=== PATIENT | female | born 2000 | race Caucasian/White ===

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

== ENCOUNTER 2022-04-26 21:39 | Emergency (ER) | payer OTHER, SELFPAY ==
[2022-04-26 22:17] VITALS: BP 139/80; PULSE 100; RESP 16; TEMP 36.9; O2SAT 100
--- NOTE | 2022-04-26 23:56 | PC.NURSE ---
2350 - Attempted to call pt for 2 hr vitals. Pt was not found in waiting room and another pt's family member stated that she walked out.
== END 2022-04-26 23:50 | disposition left against medical advice (07) ==
PROVIDERS: PCP Physician Assistant
DX: R14.0 Abdominal distension (gaseous) (principal)
CPT/HCPCS: 99199

== ENCOUNTER 2022-11-20 09:47 | Emergency (ER) | payer OTHER, SELFPAY ==
--- NOTE | ~2022-11-20 | CT_ITS ---
EXAMINATION: CT abdomen pelvis w con DATE: 11/20/2022 11:54 INDICATION: Generalized abdominal pain, nausea and vomiting TECHNIQUE: Computed tomography (CT) of the abdomen and pelvis was performed with 100 CC Omnipaque 350 intravenous contrast. Automated exposure control and iterative reconstruction technique were employe d. Exam dose: 240.03 mGy-cm total exam DLP. COMPARISON: 05/02/2021 CT abdomen pelvis FINDINGS: The lung bases are clear. Normal heart size. No pericardial or pleural effusion. The liver, gallbladder, bile ducts, spleen, pancreas, pancreatic duct, and adrenal glands and kidneys appear normal. Normal caliber of the abdominal aorta. No intraperitoneal or retroperitoneal or pelvic mass lesion or adenopathy or ascites is noted. Retroverted uterus. Adnexal areas and urinary bladder appear unremarkable. Normal appendix. No bowel obstruction, bowel wall thickening, pneumatosis or intraperitoneal free air is detected. Small fat-containing umbilical hernia. Included skeletal structures are unremarkable. IMPRESSION: Normal appendix; no bowel obstruction No significant abdominal abnormality Reviewed, dictated and finalized at [facility] Reviewed, dictated and finalized at [facility].
[2022-11-20 09:54] VITALS: BP 127/87; PULSE 93; RESP 18; TEMP 36.4; O2SAT 92
[2022-11-20 10:02] VITALS: BP 102/89; PULSE 89; RESP 18; TEMP 36.4; O2SAT 99
[2022-11-20 10:19] LABS: Basophils Absolute Auto 0.1 K/mm3 (0.0-0.1); Basophils Percent Auto 0.7 % (0.2-1.2); Eosinophils Percent Auto 0.3 % (0-4.4); Hematocrit 40.7 % (37.0-47.0); Hemoglobin 13.8 g/dL (12.0-15.0); Immature Granulocyte Absolute 0.06 K/mm3 (0.00-0.031); Immature Granulocyte Percent A 0.4 % (0-0.5); Lymphocytes Absolute Auto 1.39 K/mm3 (0.9-3.2); Lymphocytes Percent Auto 10.3 % (18.3-44.2); Mean Corpuscular HGB Conc 33.9 g/dl (32-36); Mean Corpuscular Hemoglobin 29.7 pg (26-34); Mean Corpuscular Volume 87.5 fl (80-100); Mean Platelet Volume 10.2 fl (7.4-10.4); Monocytes Absolute Auto 0.5 K/mm3 (0.1-0.6); Monocytes Percent Auto 3.6 % (2.6-8.5); Neutrophils Absolute Auto 11.4 K/mm3 (1.3-6.7); Neutrophils Percent Auto 84.7 % (45.5-73.1); Platelet Count Result 275 k/mm3 (150-375); Red Blood Count 4.65 M/mm3 (4.2-5.4); Red Cell Distribution Width 11.5 % (11.5-14.5); White Blood Count 13.5 K/mm3 (4.5-10.0)
[2022-11-20 10:27] LABS: Appearance Urine Cloudy (Clear); Bilirubin Urine 1+ (Negative); Blood Urine 2+ (Negative); Color Urine Yellow (Yellow); Glucose Urine UA 2+ mg/dL (Negative); Ketones Urine 4+ mg/dL (Negative); Leukocyte Esterase Ur Negative LEU/UL (Negative); Nitrate Urine Negative (Negative); Protein Urine 2+ mg/dL (Negative); Specific Grav Ur >= 1.030 (1.001-1.035); Urobilinogen Urine 0.2 mg/dL (<2.0); pH Urine 5.5 (5.0-9.0)
[2022-11-20 10:29] LABS: Alanine Aminotransferase 20 U/L (6-35); Albumin Level 4.6 g/dL (3.7-5.6); Alkaline Phosphatase 68 U/L (45-116); Anion Gap 14 mmol/L (8-16); Aspartate Amino Transferase 24 U/L (14-36); Bilirubin,Total 0.9 mg/dL (0.2-1.3); Blood Urea Nitrogen 13 mg/dL (8-21); Calcium 9.5 mg/dL (8.9-10.7); Carbon Dioxide 21 mmol/L (22-30); Chloride 105 mmol/L (98-107); Estimated CRCL calculation 92 ml/min; Estimated Glomerular Filt Rate > 60; Glucose 258 mg/dL (65-110); Lipase 28 U/L (23-300); Potassium 3.9 mmol/L (3.4-5.0); Sodium 140 mmol/L (134-143)
[2022-11-20 10:29] LABS: Bacteria Urine 1+ /hpf; Non Pathogenic Casts 0-2; RBC Urine 0-2 /hpf (0-2); Squamous Epithelial Cell Urine Moderate /hpf (Few); WBC Urine 21-50 /hpf
[2022-11-20 10:33] LABS: Add Urine Microscopic? YES
--- NOTE | 2022-11-20 10:34 | PC.NURSE ---
Lab called regarding add on tests.
[2022-11-20] MEDS: SODIUM CHLORIDE 0.9% IV 1,000 ML 999 ML IV CONT ×2 (10:38→10:39)
[2022-11-20 10:45] LABS: Ethanol < 10 mg/dL (<10)
[2022-11-20 10:56] LABS: Amphetamine Screen Urine Negative (Negative); Barbiturate Screen Urine Negative (Negative); Benzodiazepines Screen Urine Negative (Negative); Cannabinoid Screen Urine Positive (Negative); Cocaine Screen Urine Negative (Negative); Methadone Screen Urine Negative (Negative); Opiate Screen Urine Negative (Negative); Phencyclidine Screen Urine Negative (Negative)
[2022-11-20] MEDS: METOCLOPRAMIDE HCL INJ 10 MG/2 ML VIAL IV PUSH (12:02)
[2022-11-20] MEDS: diphenhydrAMINE HCl INJ 50 MG/ML VIAL 25 MG IV PUSH (12:04)
[2022-11-20] MEDS: FAMOTIDINE 20 MG/2 ML VIAL IV PUSH (12:05)
[2022-11-20] MEDS: MORPHINE SULFATE (*CRX) 4 MG/ML INJ 2 MG IV PUSH (12:08)
[2022-11-20] MEDS: DICYCLOMINE HCL INJ 20 MG/2 ML VIAL IM (12:09)
--- NOTE | 2022-11-20 13:22 | ED.GENADULT ---
HPI - General Adult General Chief complaint: Abdominal Pain Stated complaint: ABD Pain Time Seen by Provider: 11/20/22 11:18 History of Present Illness HPI narrative: Eleni Guevara is a 21 y/o female with PMHx of type I DM who presents today with complaints of nausea/vomiting/diarrhea that started last night, she states that she drank an unknown alcohol last night and then immediately felt ill. She reports all over non specific abdominal pain. She has not been able to keep anything down today. Related Data Home Medications Medication Instructions Recorded Confirmed insulin glargine 100 unit/mL (3 28 unit subcut DAILY 02/12/21 06/24/21 mL) subcutaneous pen (Lantus Solostar U-100 Insulin) insulin lispro 100 unit/mL 100 unit subcut DIRECTED 02/12/21 06/24/21 subcutaneous pen duloxetine 30 mg capsule,delayed 30 mg DAILY 05/06/21 06/24/21 release omeprazole 40 mg capsule,delayed 40 mg DAILY 05/06/21 06/24/21 release Allergies Allergy/AdvReac Type Severity Reaction Status Date / Time No Known Allergies Allergy Verified 09/23/21 10:00 Review of Systems Review of Systems: CONSTITUTIONAL: Denies fever, chills, or sweats. EYES: Denies visual changes, redness, or discharge. ENT: Denies rhinorrhea, congestion, sore throat, or otalgia. CARDIOVASCULAR: Denies chest pain, palpitations, or edema. RESPIRATORY: Denies cough or dyspnea. GASTROINTESTINAL: Reports all over generalized abdominal pain, nausea and vomiting, and reports diarrhea started today. GENITOURINARY: Denies dysuria or hematuria. SKIN: Denies rash or itching. MUSCULOSKELETAL: Denies back pain, joint pain, or myalgia. NEUROLOGIC: Denies headache, numbness, dizziness, or weakness. PSYCHIATRIC: Denies anxiety or depression. [facility] Past Medical History Medical History Asthma Constipation DKA, type 1 GERD (gastroesophageal reflux disease) Nausea and vomiting in adult Type I diabetes mellitus Surgical History Surgical History No history of previous surgery Social History Social History Smoking status: Never smoker Alcohol intake: never Substance use: never Living arrangements: with family Occupation/Education: student Gender identity (if verbalized by the patient): Female Exam Narrative: GENERAL: Well-appearing, well-nourished, and in no acute distress. HEAD: Normocephalic, atraumatic. EYES: PERRLA and EOMI. ENT: Nares clear, no rhinorrhea or epistaxis. Mucous membranes moist. Oropharynx without tonsillar hypertrophy exudate or other lesions. NECK: Supple. No adenopathy or masses. No carotid bruits or JVD CHEST: Clear to auscultation. No respiratory distress. No wheezes rales or rhonchi HEART: Regular rate and rhythm. No murmur heard. Normal peripheral pulses. ABDOMEN: Soft, nondistended, normal active bowel sounds. Pain is generalized she complains of pain all over abdomen but it is not reproducible with palpation EXTREMITIES: Normal range of motion. No edema. SKIN: Warm, dry, no rash. NEURO: No focal deficits. Alert and oriented x3. PSYCH: Normal mood and affect. Course Vital Signs Vital signs: Vital Signs Temperature 36.4 C L 11/20/22 09:54 Pulse Rate 93 11/20/22 09:54 Respiratory Rate 18 11/20/22 09:54 Blood Pressure 127/87 11/20/22 09:54 Pulse Oximetry 92 11/20/22 09:54 Oxygen Delivery Room Air 11/20/22 09:54 Temperature 36.4 C L 11/20/22 10:02 Pulse Rate 75 11/20/22 14:54 Respiratory Rate 17 11/20/22 14:54 Blood Pressure 100/61 11/20/22 14:54 Pulse Oximetry 100 11/20/22 14:54 Oxygen Delivery Room Air 11/20/22 09:54 Medical Decision Making MDM Narrative Medical decision making narrative: On exam pt is upset/ tearful complaining of nausea/vomiting and now diarrhea that started after drinki
[2022-11-20 13:23] LABS: Glucose Point of Care 207 mg/dl (65-105)
[2022-11-20 14:54] VITALS: BP 100/61; PULSE 75; RESP 17; O2SAT 100
== END 2022-11-20 15:22 | disposition home or self-care (01) ==
PROVIDERS: Emergency Medicine; Emergency Provider Nurse Practitioner Family; PCP Physician Assistant
DX: K52.9 Noninfective gastroenteritis and colitis, unspecified (principal); N30.01 Acute cystitis with hematuria; E10.9 Type 1 diabetes mellitus without complications; J45.909 Unspecified asthma, uncomplicated; K21.9 Gastro-esophageal reflux disease without esophagitis; Z79.4 Long term (current) use of insulin
CPT/HCPCS: 36415; 74177; 80053; 80307; 81001; 81025; 82948; 83690; 85025; 87086; 87088; 96361; 96372; 96374; 96375; 99284; J0500; J1200; J2270; J2765; J7030; Q9967

== ENCOUNTER 2023-12-11 17:04 | Emergency (ER) | payer OTHER, SELFPAY ==
[2023-12-11 17:32] VITALS: BP 113/71; PULSE 103; RESP 16; TEMP 36.9; O2SAT 100
== END 2023-12-11 18:20 | disposition left against medical advice (07) ==
LOC: EXPBETH 17:08
PROVIDERS: Emergency Provider Registered Nurse
DX: Z53.21 Procedure and treatment not carried out due to patient leaving prior to being seen by health care provider (principal)
CPT/HCPCS: 99199

== ENCOUNTER 2024-10-18 18:20 | Emergency (ER) | payer OTHER, SELFPAY ==
--- OUTSIDE RECORDS SUMMARY | 2024-10-18 17:39 | XMS_ITS | Encounter Summary ---
Author Organization [facility] Address [address] [place] [address] Phone Care Team Providers Care Stockroom Associate Name Role Phone Walter Pride Primary Care Provider [phone] Encounter Details Date Type Department Care Team (Late st Contact Info) Description 10/18/2024 5:39 PM CDT Emergency [facility] Emergency [address] [place] [address] Social History Tobacco Use Types Packs/Day Years Used Date Smoking Tobacco: Never Smokeless Tobacco: Never Alcohol Use Standard Drinks/Week Comments Never 0 (1 standard drink = 0.6 oz pur e alcohol) Sexually Active Control Partners Comments Yes Comments Unknown Sex and Gender Information Value Date Recorded Sex Assigned at Female 09/03/2023 3:20 AM CDT Legal Sex Female 2:01 AM CDT Gender Identity Female 09/03/2023 3:20 AM CDT Sexual Orientation Not on file documented as of this encounter Plan of Treatment Not on file documented as of this encounter Visit Diagnoses Not on filedocumented in this encounter Care Teams Stockroom Associate Relationship Specialty Start Date End Date Walter Pride PAC [address] [place] [address] PCP - General Physician Oil Pipe Inspector 08/09/23 documented as of this encounter
[2024-10-18 18:25] VITALS: BP 139/72; PULSE 89; RESP 14; TEMP 36.8; O2SAT 100
--- OUTSIDE RECORDS SUMMARY | 2024-10-18 18:25 | XMS_ITS | Encounter Summary ---
Author Organization [facility] Address [address] [place] [address] Care Team Providers Care Photoresist Printer Name Role Phone Megan Golden MD Primary Care Provider [phone] Unknown, Provider Primary Care Provider Unavaila ble Megan Golden MD Primary Care Provider [phone] Lluvia Gorman PA-C Primary Care Provider + Walter Pride Primary Care Provider [phone] Encounter Details Date Type Department Care Team (Late st Contact Info) Description 02/24/2021 Telephone [facility] Pediatrics - Diabetes [facility] [address] [place] [address] Judy Trevino, HEALTHCARE SPECIALIST-SEX OFFENDER TREATMENT PROFESSIONAL [address] [place] [address] Social History Tobacco Use Types Packs/Day Years Used Date Smoking Tobacco: Never Smokeless Tobacco: Never Alcohol Use Standard Drinks/Week Comments Never 0 (1 standard drink = 0.6 oz pur e alcohol) PHQ-2 Answer Date Recorded Patient Health Questionnaire-2 Score 0 02/26/2021 Comments Unknown Sex and Gender Information Value Date Recorded Sex Assigned at Female 10/11/2022 12:37 PM CDT Legal Sex Female 5:42 AM JEWEL BEARING MAKER Gender Identity Female 10/11/2022 12:37 PM CDT Sexual Orientation Straight 10/11/2022 12 :37 PM CDT COVID-19 Exposure Response Date Recorded In the last month, have you been in contact with someone who was confirmed or suspected to have Coronavirus / COVID-19? No / Unsure 02/26/2021 9:47 AM JEWEL BEARING MAKER documented as of this encounter Functional Status * Is person deaf or have serious hearing difficulty? Answer Date of Assessment Author No 02/07/2021 1:00 PM Monica Blanco RN * Is person blind or have serious difficulty seeing? Answer Date of Assessment Author No 02/07/2021 1:00 PM Monica Blanco RN * Does person have serious difficulty walking/climbing stairs? Answer Date of Assessment Author No 02/07/2021 1:00 PM Monica Blanco RN * Does person have difficulty dressing/bathing? Answer Date of Assessment Author No 02/07/2021 1:00 PM Monica Blanco RN * Does person have difficulty doing errands alone? Answer Date of Assessment Author No 02/07/2021 1:00 PM Monica Blanco RN * Over the past 2 weeks, how often have you been bothered by any of the following problems? Question Answer Date of Assessment Author Little interest or pleasure in doing things Not at all 02/26/2021 9:57 AM Elke Newsome RN Feeling down, depressed, or hopeless Not at all 02/26/2021 9:57 AM Elke Newsome RN Patient Health Questionnaire -2 Score 0 02/26/2021 9:57 AM Elke Newsome RN documented as of this encounter Mental Status * Does person have difficulty concentrating/remembering/making decisions? Answer Entry Date Author No 02/07/2021 1:00 PM Monica Blanco RN documented in this encounter Miscellaneous Notes * Telephone Encounter - Keyla Knight RN - 02/24/2021 2:44 PM CST Eleni called to review bgs. See flowsheet. Per protocol, I did not make any adjustments at this time. I applauded her efforts. I asked for family to call tomorrow for further review. Current doses: 1:6 1:40>150 28 units lantus L BEARING MAKER documented in this encounter Plan of Treatment Not on file documented as of this encounter Visit Diagnoses Not on filedocumented in this encounter Care Teams Photoresist Printer Relationship Specialty Start Date End Date Megan Golden MD [address] [place] [phone] PCP - General Pediatrics 01/31/21 06/13/21 Unknown, Provider [address] [place] [phone] PCP - General 06/17/2106/29 Megan Golden MD [address] [place] [phone] PCP - General 06/30/21 09/12/21 Lluvia Gorman PA-C [address] [place] [phone] PCP - General Physician Cut Off Saw Set Up Operator 09/13/21 04/26/23 Walter Pride [address] [place] [phone] PCP - General 04/27/23 documented as of this encounter
--- OUTSIDE RECORDS SUMMARY | 2024-10-18 18:25 | XMS_ITS | Encounter Summary ---
Author Organization [facility] Address [address] [facility] [place] [address] Care Team Providers Care Laboratory Aide Name Role Phone Walter Pride Primary Care Provider [phone] Reason for Visit * Reason Comments Refill Request Encounter Details Date Type Department Care Team (Late st Contact Info) Description 10/20/2023 Refill [facility] Pediatrics - Diabetes [address] [address] Nasim Oneal MD [address] [place] [phone] Refill Request Social History Tobacco Use Types Packs/Day Years Used Date Smoking Tobacco: Never Smokeless Tobacco: Never Alcohol Use Standard Drinks/Week Comments Never 0 (1 standard drink = 0.6 oz pur e alcohol) PHQ-2 Answer Date Recorded Patient Health Questionnaire-2 Score 0 12/16/2021 Comments No Sex and Gender Information Value Date Recorded Sex Assigned at Female 10/11/2022 12:37 PM CDT Legal Sex Female 5:42 AM PELLETISING EXTRUDER OPERATOR Gender Identity Female 10/11/2022 12:37 PM CDT Sexual Orientation Straight 10/11/2022 12 :37 PM CDT documented as of this encounter Functional Status [...] 02/07/2021 1:00 PM Monica Blanco RN documented as of this encounter Mental Status * Does person have difficulty concentrating/remembering/making decisions? Answer Entry Date Author No 02/07/2021 1:00 PM Monica Blanco RN documented in this encounter Plan of Treatment Not on file documented as of this encounter Visit Diagnoses Not on filedocumented in this encounter Care Teams Laboratory Aide Relationship Specialty Start Date End Date Walter Pride [address] [place] [phone] PCP - General 04/27/23 documented as of this encounter
--- OUTSIDE RECORDS SUMMARY | 2024-10-18 18:25 | XMS_ITS | Encounter Summary ---
Author Organization [facility] Address [address] [facility] [place] [address] Care Team Providers Care Coal Mill Operator Name Role Phone Megan Golden MD Primary Care Provider [phone] Unknown, Provider Primary Care Provider Unavaila ble Megan Golden MD Primary Care Provider [phone] Lluvia Gorman PA-C Primary Care Provider + Walter Pride Primary Care Provider [phone] Encounter Details Date Type Department Care Team (Late st Contact Info) Description 02/11/2021 Telephone [facility] Pediatrics - Diabetes [address] [address] Nadya Sosa [address] [address] Social History Tobacco Use Types Packs/Day Years Used Date Smoking Tobacco: Never Smokeless Tobacco: Never Alcohol Use Standard Drinks/Week Comments Never 0 (1 standard drink = 0.6 oz pur e alcohol) Comments Unknown Sex and Gender Information Value Date Recorded Sex Assigned at Female 10/11/2022 12:37 PM CDT Legal Sex Female 5:42 AM REFINERY OPERATOR VAPOR RECOVERY UNIT Gender Identity Female 10/11/2022 12:37 PM CDT [...] encounter Miscellaneous Notes * Telephone Encounter - Sintia Sanchez RN - 02/17/2021 10:23 AM CST I returned call to Eleni to review recent blood sugars, see flow sheet. No changes made today, to call tomorrow to review blood sugars. Current insulin doses: Lantus 25 units Meals 1:8 CHO Correction 1 u 50 >150 To fax school letter to [phone], I await to fax letter later this week, insulin dose may change. Eleni said she likely will go backto school on 02/22/21. NERY OPERATOR VAPOR RECOVERY UNIT * Telephone Encounter - Larry Beatty - 02/16/2021 1:31 PM CST Attempted to return call from voicemail left by Eleni. Voicemail left to have Eleni call us back. NERY OPERATOR VAPOR RECOVERY UNIT * Telephone Encounter - Nadya Sosa DO - 02/16/2021 10:21 AM REFINERY OPERATOR VAPOR RECOVERY UNIT Received labs collected 02/15/21 to follow up hypokalemia. Na 137 K 4.9 Chloride 105 Bicarbonate 24 BUN 21 Creatinine 0.4 Glucose 239 Calcium 8.8 Potassium is normal. No further supplement needed. Will recheck at next appointment. Have lab repeated sooner if at [facility] if having muscle cramping. NERY OPERATOR VAPOR RECOVERY UNIT * Telephone Encounter - Larry Beatty - 02/16/2021 9:32 AM CST Mom called to review bgs. Returned call, mom states she is at work and did not have bgs with her. Mom also expressed that school was refusing to allow Eleni back into school due to high bgs. School also requested an action plan to be sent. School requires a note faxed from Dr. Sosa stating it is appropriate for Eleni to go back to school with high bgs. Mom noted that carb dose was changed onSunday 02/14/2021 to 1:8. I asked for family to call back once they have patients bgs and school contact information. NERY OPERATOR VAPOR RECOVERY UNIT * Telephone Encounter - Keyla Knight RN - 02/11/2021 3:15 PM CST Mom called to review bgs. Eleni was just discharged home yesterday. See flowsheet. Per protocol, Idid not make any adjustments at this time. I asked for family to call tomorrow for further review. Current Doses: Lantus 20 units 1:12 1:50>150 NERY OPERATOR VAPOR RECOVERY UNIT documented in this encounter Plan of Treatment Scheduled Orders Name Type Priority Associated Diagnoses Orde r Schedule BASIC METABOLIC PANEL (CALCI UM TOTAL) Lab Routine Hypokalemia Ordered: 02/16/2021 documented as of this encounter Results * (ABNORMAL) BASIC METABOLIC PANEL (CALCIUM TOTAL) (06/14/2021 11:43 AM CDT) BUN 16 7 - 26 mg/dL 06/14/2021 12:48 PM [facility] Creatinine 0.45(L) 0.56 - 0.96 mg/dL 06/14/2021 12:48 PM [facility] Sodium 136 136 - 145 mmol/L 06/14/2021 12:48 PM [facility] Potassium 3.9 3.5 - 4.5 mmol/L 06/14/2021 12:48 PM [facility] Chloride 100 98 - 107 mmol/L 06/14/2021 12:48 PM [facility] CO2 24 22 - 29 mmol/L 06/14/2021 12:48 PM [facility] Glucose 186(H) 70 - 115 mg/dL 06/14/2021 12:48 PM [facility] Calcium 10.5(H) 8.4 - 10.2 mg/dL 06/14/2021 12:48 PM [facility] Anion Gap 16 8 - 18 06/14/2021 12:48 PM [facility] BUN/Creatinine Ratio 36(H) 7 - 23 06/14/2021 12:48 PM [facility] Osmolality Calculated 288 270 - 300 mOsm/kg 06/14/2021 12:48 PM [facility] eGFR by CKD-EPI >90 >=90 mL/min/1.7 3 m2 06/14/2021 12:48 PM [facility] Blood BLOOD SPECIMEN / Unknown Venipuncture / Unknown 06/14/2021 11:43 AM CDT 06/14/2021 12:17 PM T us Nadya Sosa DO LAB - CHEMISTRY ORDERABLES Final Result [facility] [address] [place] [phone], [facility] [phone] documented in this encounter Visit Diagnoses Diagnosis Hypokalemia- Primary Hypopotassemia Diabetic ketoacidosis without coma associated with type 1 diabetes mellitus (HCC) documented in this encounter Additional Health Concerns Infection Onset Date Last Indicated Resolved Time COVID-19 Confirmed 02/07/2021 02/07/2021 4:36 AM REFINERY OPERATOR VAPOR RECOVERY UNIT documented as of this encounter Care Teams Coal Mill Operator Relationship Specialty Start Date End Date Megan Golden MD [address] [place] [phone] PCP - General Pediatrics 01/31/21 06/13/21 Unknown, Provider [address] [place] [phone] PCP - General 06/17/2106/29 Megan Golden MD [address] [place] [phone] PCP - General 06/30/21 09/12/21 Lluvia Gorman PA-C [address] [place] [phone] PCP - General Physician Wind Energy Systems Installer 09/13/21 04/26/23 Walter Pride [address] [place] [phone] PCP - General 04/27/23 documented as of this encounter
--- OUTSIDE RECORDS SUMMARY | 2024-10-18 18:25 | XMS_ITS | Encounter Summary ---
Author Organization [facility] Address [address] [place] [address] Care Team Providers Care Sand Filler Name Role Phone BiggWalter Primary Care Provider [phone] Encounter Details Date Type Department Care Team (Late st Contact Info) Description 05/19/2023 Telephone [facility] Pediatrics - Diabetes Mgmt [address] [place] [address] Nadya Sosa, [address] [address] Social History Tobacco Use Types Packs/Day Years Used Date Smoking Tobacco: Never Smokeless Tobacco: Never Alcohol Use Standard Drinks/Week Comments Never 0 (1 standard drink = 0.6 oz pur e alcohol) PHQ-2 Answer Date Recorded Patient Health Questionnaire-2 Score 0 12/16/2021 Comments No Sex and Gender Information Value Date Recorded Sex Assigned at Female 10/11/2022 12:37 PM CDT Legal Sex Female 5:42 AM GASATERIA ATTENDANT Gender Identity Female 10/11/2022 12:37 PM CDT [...] encounter Miscellaneous Notes * Telephone Encounter - Larry Beatty - 05/19/2023 2:53 PM CDT Eleni called and stated that she has not heard from the Adult Endo that Dr. Sosa sent a referral too. She was hoping that Dr. Sosa would send in another referral for her. Let Eleni know that I will route to Dr. Sosa. documented in this encounter Plan of Treatment Not on file documented as of this encounter Visit Diagnoses Not on filedocumented in this encounter Care Teams Sand Filler Relationship Specialty Start Date End Date Walter Pride [address] [place] [phone] PCP - General 04/27/23 documented as of this encounter
--- OUTSIDE RECORDS SUMMARY | 2024-10-18 18:25 | XMS_ITS | Encounter Summary ---
Author Organization [facility] Address [address] [place] [address] Care Team Providers Care Audio/Visual Manager Name Role Phone Walter Pride Primary Care Provider [phone] Reason for Visit * Reason Onset Date Comments MEDICATION REFILL 05/26/2023 Encounter Details Date Type Department Care Team (Late st Contact Info) Description 05/26/2023 Refill [facility] Pediatrics - Diabetes Mgmt [address] [place] [phone] Ashley Lopez, DO [address] [place] [phone] MEDICATION REFILL Social History Tobacco Use Types Packs/Day Years Used Date Smoking Tobacco: Never Smokeless Tobacco: Never Alcohol Use Standard Drinks/Week Comments Never 0 (1 standard drink = 0.6 oz pur e alcohol) PHQ-2 Answer Date Recorded Patient Health Questionnaire-2 Score 0 12/16/2021 Comments No Sex and Gender Information Value Date Recorded Sex Assigned at Female 10/11/2022 12:37 PM CDT Legal Sex Female 5:42 AM BORING MACHINE OPERATOR Gender Identity Female 10/11/2022 12:37 PM CDT Sexual Orientation Straight 10/11/2022 12 :37 PM CDT documented as of this encounter Functional Status * Is person deaf or have serious hearing difficulty? Answer Date of Assessment Author No 02/07/2021 1:00 PM BORING MACHINE OPERATOR Monica Solis RN * Is person blind or have [...] documented as of this encounter Visit Diagnoses Diagnosis Type 1 diabetes mellitus without complication (HCC) Type I (juvenile type) diabetes mellitus without mention of complication, not stated as uncontrolled documented in this encounter Care Teams Audio/Visual Manager Relationship Specialty Start Date End Date Walter Pride [address] [place] [phone] PCP - General 04/27/23 documented as of this encounter
--- OUTSIDE RECORDS SUMMARY | 2024-10-18 18:25 | XMS_ITS | Clinical Summary ---
Author Organization [facility] Address [address] [place] [address] Phone Care Team Providers Care Electric Tool Repairer Name Role Phone Walter Pride PAC Primary Care Provider [phone] Allergies No known active allergies Medications traMADol (ULTRAM) 50 MG TabletIndication s:Gastroenteriti s Take 1-2 Tablets by mouth every 6 hours as needed for Severe pain. 15 Tablet 07/22/2024 Active ondansetron (ZOFRAN-ODT) 4 MG TABLET DISPERSIBLE Take 1 Tablet by mouth every 8 hours as needed for Nausea - 1st line. 10 Tablet 07/22/2024 Active Encounters Date Type Department Care Team Description 10/18/2024 5:39 PM CDT Emergency [facility] Emergency [address] [place] [address] 07/22/2024 1:23 AM CDT - 07/22/2024 3:54 AM CDT Emergency [facility] Emergency [address] [place] [address] Jigar Chávez MD Gastroenteritis Discharge Disposition: Discharged to home or Selfcare 07/22/2024 Travel from Last 3 Months Social History Tobacco Use Types Packs/Day Years Used Date Smoking Tobacco: Never Smokeless Tobacco: Never Tobacco Cessation:Counseling Given: Not Answered Alcohol Use Standard Drinks/Week Comments Never 0 (1 standard drink = 0.6 oz pur e alcohol) Sexually Active Control Partners Comments Yes Comments Unknown Sex and Gender Information Value Date Recorded Sex Assigned at Female 09/03/2023 3:20 AM CDT Legal Sex Female 2:01 AM CDT Gender Identity Female 09/03/2023 3:20 AM CDT Sexual Orientation Not on file Last Filed Vital Signs Vital Sign Reading Time Taken Comments Blood Pressure 132/78 07/22/2024 1:28 AM CDT Pulse 88 07/22/2024 3:45 AM CDT Temperature 36.7 C (98.1 F) 07/22/2024 1:28 AM CDT Respiratory Rate 18 07/22/2024 1:28 AM CDT Oxygen Saturation 97% 07/22/2024 3:45 AM CDT Inhaled Oxygen Concentration - - Weight 63.5 kg (140 lb) 07/22/2024 1:28 AM CDT Height 152.4 cm (5') 07/22/2024 1:28 AM CDT Body Mass Index 27.34 07/22/2024 1:28 AM CDT Plan of Treatment Health Maintenance Due Date Last Done Comments Hepatitis C Virus (HCV) Screening 2002 Meningococcal B Immunization (2 of 2 - Bexsero SCDM 2-dose series) 03/20/2021 09/17/2020 Pap Smear 12/22/2023 Influenza Immunization (#1) 10/14/202410/16, 02/09/2023, 12/22/2014, Additional history exists SARS-COV-2 Immunization ( season) 2024 Respiratory Syncytial Virus (RSV) Immunization (Adult) (1 - 1-dose 75+ series) 2077 Hepatitis B Immunization Completed 004, 04/23/2003, 02/24/2003, Additional history exists Pneumococcal Immunization Combined Completed 07/22/2004, 09/30/2003, 04/23/2003, Additional history exists TdaP Immunization Completed 10/21/2014 Human Papillomavirus (HPV) Immunization Completed 04/29/2015, 12/22/2014, 10/21/2014 Meningococcal Immunization (ACWY) Completed 09/17/2020, 10/21/2014 Rotavirus Immunization Aged Out No lo nger eligible based on patient's age to complete this topic Procedures Procedure Name Priority Date/Time Associated Diagnosis Comments CT ABDOMEN PELVIS W/O CONTRAST Stat with Interpretation 07/22/2024 2:51 AM CDT CBC WITH AUTO DIFFERENTIAL STAT 07/22/2024 2:03 AM CDT CMP (COMPREHENSIVE METABOLIC PANEL) STAT 07/22/2024 2:03 AM CDT COMPLETE BLOOD COUNT (CBC) WITH DIFF STAT 07/22/2024 2:03 AM CDT POCT URINE HCG () STAT 07/22/2024 1:38 AM CDT URINALYSIS REFLEX IF INDICATED BY ABNORMAL RESULTS STAT 07/22/2024 1:26 AM CDT from Last 3 Months Results * CT ABDOMEN PELVIS W/O CONTRAST (07/22/2024 2:51 AM CDT) Anatomical Region Laterality Modality Abdomen N/A Computed Tomogra phy 07/22/2024 3:04 AM CDT Impressions 07/22/2024 3:06 AM CDT IMPRESSION: Slightly fluid distended small bowel loops in the pelvis are evidence for mild enteritis, without wall thickening/inflammation. Normal appendix. No urinary tract obstruction. Narrative 07/22/2024 3:06 AM CDT EXAM DESCRIPTION: CT ABDOMEN PELVIS W/O CONTRAST REASON FOR STUDY: Right flank pain x3 days TECHNIQUE: CT scan of the abdomen and pelvis performed without intravenous and without oral contrast using helical scanning technique. Reconstructed coronal and sagittal MPR images reviewed. All images stored on PACS. Automated exposure control was used as a dose optimization technique for this examination. COMPARISON: None FINDINGS: LOWER CHEST: Lung bases are clear. Heart size normal. No effusion. LIVER/BILIARY: Liver unremarkable. Biliary tree normal in caliber. GALLBLADDER: Normal. SPLEEN: Normal. PANCREAS: Moderate atrophy. ADRENAL GLANDS: Normal. KIDNEYS/URINARY TRACT: Unremarkable. GI: Stomach and small bowel appear normal other than mildly fluid distended small bowel loops in the pelvis. Moderate volume of stool throughout the colon. Appendix normal. OTHER ABDOMINAL/PELVIS: Major vascular structures are normal in caliber. No enlarged lymph node or free fluid. MSK: Unremarkable. BODY WALL: Unremarkable. THIS IS AN ELECTRONICALLY VERIFIED FINAL REPORT 07/22/2024 3:04 AM - Electronically signed by Larry Brooke M.D. [place]: PER Report ID: [id number] Reading Location: [id number] Procedure Note Larry Brooke MD - 07/22/2024 EXAM DESCRIPTION: CT ABDOMEN PELVIS W/O CONTRAST REASON FOR STUDY: Right flank pain x3 days TECHNIQUE: CT scan of the abdomen and pelvis performed without intravenous and without oral contrast using helical scanning technique. Reconstructed coronal and sagittal MPR images reviewed. All images stored on PACS. Automated exposure control was used as a dose optimization technique for this examination. COMPARISON: None FINDINGS: LOWER CHEST: Lung bases are clear. Heart size normal. No effusion. LIVER/BILIARY: Liver unremarkable. Biliary tree normal in caliber. GALLBLADDER: Normal. SPLEEN: Normal. PANCREAS: Moderate atrophy. ADRENAL GLANDS: Normal. KIDNEYS/URINARY TRACT: Unremarkable. GI: Stomach and small bowel appear normal other than mildly fluid distended small bowel loops in the pelvis. Moderate volume of stool throughout the colon. Appendix normal. OTHER ABDOMINAL/PELVIS: Major vascular structures are normal in caliber. No enlarged lymph node or free fluid. MSK: Unremarkable. BODY WALL: Unremarkable. THIS IS AN ELECTRONICALLY VERIFIED FINAL REPORT 07/22/2024 3:04 AM - Electronically signed by Larry Brooke M.D. [place]: PER Report ID: [id number] Reading Location: [id number] IMPRESSION: Slightly fluid distended small bowel loops in the pelvis are evidence for mild enteritis, without wall thickening/inflammation. Normal appendix. No urinary tract obstruction. Jigar Chávez MD IMG CT ORDERABLES Final Re sult * (ABNORMAL) CBC with Auto Differential (07/22/2024 2:03 AM CDT) Pathologist [facility] WBC 9.56 4.00 - 12.00 10(3)/mcL 07/22/2024 2:25 AM CDT [facility] RBC 4.44 3.80 - 5.30 10(6)/mcL 07/22/2024 2:25 AM CDT [facility] HEMOGLOBIN (HGB) 13.1 12.0 - 15.8 g/dL 07/22/2024 2:25 AM CDT [facility] HEMATOCRIT (HCT) 38.9 36.0 - 47.0 % 07/22/2024 2:25 AM CDT [facility] MCV 87.6 82.0 - 96.0 fL 07/22/2024 2:25 AM CDT [facility] MCH 29.5 26.0 - 34.0 pg 07/22/2024 2:25 AM CDT [facility] MCHC 33.7 31.0 - 36.0 g/dL 07/22/2024 2:25 AM CDT [facility] PLATELET COUNT 292 140 - 440 10(3)/[facility] 07/22/2024 2:25 AM CDT [facility] RDW 11.2(L) 11.8 - 15.5 % 07/22/2024 2:25 AM CDT [facility] MPV 9.9 9.7 - 12.4 fL 07/22/2024 2:25 AM CDT [facility] NEUTROPHILS 50.4 47.0 - 73.0 % 07/22/2024 2:25 AM CDT [facility] LYMPHOCYTES 38.1 18.0 - 42.0 % 07/22/2024 2:25 AM CDT [facility] MONOCYTES 7.5 4.0 - 12.0 % 07/22/2024 2:25 AM CDT [facility] EOSINOPHILS 3.1 0.0 - 5.0 % 07/22/2024 2:25 AM CDT [facility] BASOPHILS 0.9 0.0 - 1.0 % 07/22/2024 2:25 AM CDT [facility] ABSOLUTE NEUTROPHILS 4.81 1.60 - 7.70 10(3)/[facility] 07/22/2024 2:25 AM CDT [facility] ABSOLUTE LYMPHOCYTES 3.64(H) 1.30 - 3.20 10(3)/[facility] 07/22/2024 2:25 AM CDT [facility] ABSOLUTE MONOCYTES 0.72 0.20 - 1.00 10(3)/[facility] 07/22/2024 2:25 AM CDT [facility] ABSOLUTE EOSINOPHIL 0.30 0.00 - 0.40 10(3)/[facility] 07/22/2024 2:25 AM CDT [facility] ABSOLUTE BASOPHILS 0.09 0.00 - 0.10 10(3)/[facility] 07/22/2024 2:25 AM CDT [facility] NRBC PER 100 WBC 0 07/23/19 2:25 AM CDT [facility] Blood Venipuncture / Unknown 07/22/2024 2:03 AM CDT 07/22/2024 2:22 AM CDT us Jigar Chávez MD HEMATOLOGY ORDERABLES Evangelina meza Result [facility] [address] [place] [address] * (ABNORMAL) CMP (07/22/2024 2:03 AM CDT) SODIUM 139 136 - 145 mmol/L 07/22/2024 2:43 AM CDT [facility] POTASSIUM 4.0 3.5 - 5.1 mmol/L 07/22/2024 2:43 AM CDT [facility] CHLORIDE 107 98 - 107 mmol/L 07/22/2024 2:43 AM CDT [facility] CO2, VENOUS 25 22 - 30 mmol/L 07/22/2024 2:43 AM CDT [facility] ANION GAP 11.0 <18.0 mmol/L 07/22/2024 2:43 AM T [facility] GLUCOSE 155(H) 70 - 99 mg/dL 07/22/2024 2:43 AM CDT [facility] BUN 13 5 - 18 mg/dL 07/22/2024 2:[address] [facility] CREATININE, BLOOD 0.75 0.60 - 1.00 mg/dL 07/22/2024 2:43 AM T [facility] BUN/CREATININE RATIO 17 12 - 20 ratio 07/22/2024 2:43 AM T [facility] TOTAL PROTEIN 7.2 6.0 - 8.0 g/dL 07/22/2024 2:[address] [facility] ALBUMIN 4.3 3.5 - 5.0 g/dL 07/22/2024 2:[address] [facility] A/G RATIO 1.5 1.0 - 2.2 07/22/2024 2:[address] [facility] CALCIUM 9.5 8.7 - 10.5 mg/dL 07/22/2024 2:[address] [facility] T BILI 0.2 0.2 - 1.2 mg/dL 07/22/2024 2:[address] [facility] SGOT (AST) 18 <43 U/L 07/22/2024 2:[address] [facility] SGPT (ALT) 16 <56 U/L 07/22/2024 2:[address] [facility] ALKALINE PHOSPHATASE 61 40 - 150 U/L 07/22/2024 2:[address] [facility] GFR, ESTIMATED >60 >=60 07/22/2024 2:[address] [facility] Comment: Creatinine Clearance is the preferred criteria for selecting drug dose adjustments in renally impaired patients. The GFR is provided as additional pertinent clinical information. GFR is reported in mL/min/1.73 sq m. Calculation based on the Chronic Kidney Disease Epidemiology Collaboration (CKD- EPI) equation refit without adjustment for race. GFR, EST. >60 >=60 025 2:43 AM CDT [facility] GFR, EST. NONAFRICAN >60 >=60 07/22/2024 2:43 AM CDT [facility] Blood Venipuncture / Unknown 07/22/2024 2:03 AM CDT 07/22/2024 2:22 AM CDT Jigar Chávez MD CHEMISTRY ORDERABLES Final Result [facility] [address] [place] [address] * POCT Urine HCG () (07/22/2024 1:38 AM CDT) Pathologist [facility] POC URINE Negative POC URINE CONTROL Floor Installer Pass Urine 07/22/2024 1:38 AM CDT Jigar Chávez MD POINT OF CARE TESTING (MAN UAL) Final Result * (ABNORMAL) URINALYSIS REFLEX IF INDICATED BY ABNORMAL RESULTS (07/22/2024 1:26 AM CDT) Pathologist [facility] SPECIFIC GRAVITY 1.015 1.003 - 1.030 07/22/2024 1:49 AM CDT [facility] URINE PH 6.0 5.0 - 9.0 07/22/2024 1:49 AM CDT [facility] WBC ESTERASE Negative Negative 07/22/2024 1:49 AM CDT [facility] NITRITE Negative Negative 07/22/2024 1:49 AM CDT [facility] PROTEIN, RANDOM URINE 30 mg/dL(A) Negative 07/22/2024 1:49 AM CDT [facility] URINE GLUCOSE, QUAL 250 mg/dL(A) Negative 07/22/2024 1:49 AM CDT [facility] URINE KETONES 5 mg/dL(A) Negative 07/22/2024 1:49 AM CDT [facility] UROBILINOGEN Normal Normal mg/dL 07/22/2024 1:49 AM CDT [facility] URINE BLOOD Negative Negative dasia/ul 07/22/2024 1:49 AM CDT [facility] URINALYSIS COLOR Yellow 07/22/2024 1:49 AM CDT [facility] URINALYSIS CLARITY Clear 07/22/2024 1:49 AM CDT [facility] WBC (Urine) 0-5 Negative, 0-5 /hpf 07/22/2024 1:49 AM CDT [facility] URINE RBC'S 0-2 Negative, 0-2 /hpf 07/22/2024 1:49 AM CDT [facility] EPITHELIAL CELLS Occasional /lpf 07/22/2024 1:49 AM CDT [facility] BACTERIA, URINE Few(A) Negative /hpf 07/22/2024 1:49 AM CDT [facility] Urine URINE SPECIMEN OBTAINED BY CLEAN CATCH PROCEDURE / Unknown Non-Phlebotomy Collection / Unknown 07/22/2024 1:26 AM CDT 07/22/2024 1:38 AM CDT us Jigar Chávez MD URINE ORDERABLES Final Res ult [facility] [address] [place] [address] from Last 3 Months Insurance [place]ICAID [place] Care Teams Electric Tool Repairer Relationship Specialty Start Date End Date Walter Pride PAC [address] [id number] PCP - General Physician Junior Software Developer 08/09/23
--- OUTSIDE RECORDS SUMMARY | 2024-10-18 18:25 | XMS_ITS | Encounter Summary ---
Author Organization [facility] Address [address] [facility] [place] [address] Care Team Providers Care Machine Crater Name Role Phone Megan [place] MD Primary Care Provider [phone] Unknown, Provider Primary Care Provider Unavaila ble Megan [place] MD Primary Care Provider [phone] Lluvia [place] PA-C Primary Care Provider + Walter Pride Primary Care Provider [phone] Reason for Visit * Reason Onset Date Comments MEDICATION REFILL 03/02/2021 Encounter Details Date Type Department Care Team (Late st Contact Info) Description 03/02/2021 Refill [facility] Pediatrics - Diabetes [address] [address] Judy Trevino, DOCKET SPECIALIST-CAD LIBRARIAN [address] [place] [phone] MEDICATION REFILL Social History Tobacco Use Types [...] PM CDT Legal Sex Female 5:42 AM BUILDING ILLUMINATING ENGINEER Gender Identity Female 10/11/2022 12:37 PM CDT Sexual Orientation Straight 10/11/2022 12 :37 PM CDT COVID-19 Exposure Response Date Recorded In the last month, have you been in contact with someone who was confirmed or suspected to have Coronavirus / COVID-19? No / Unsure 02/26/2021 9:47 AM BUILDING ILLUMINATING ENGINEER documented as of this encounter Functional Status [...] Diagnosis Type 1 diabetes mellitus without complication (HCC)- Primary Type I (juvenile type) diabetes mellitus without mention of complication, not stated as uncontrolled documented in this encounter Care Teams Machine Crater Relationship Specialty Start Date End Date Megan [place] MD [address] [place] [phone] PCP - General Pediatrics 01/31/21 06/13/21 Unknown, Provider [address] [place] [phone] PCP - General 06/17/2106/29 Megan [place] MD [address] [place] [phone] PCP - General 06/30/21 09/12/21 Lluvia [place] PA-C [facility] [place] [phone] PCP - General Physician Health Information Coder 09/13/21 04/26/23 Walter Pride [address] [place] [phone] PCP - General 04/27/23 documented as of this encounter
--- OUTSIDE RECORDS SUMMARY | 2024-10-18 18:25 | XMS_ITS | Encounter Summary ---
Author Organization [facility] Address [address] [facility] [address] Care Team Providers Care Passenger Conductor Name Role Phone Lluvia [place] PA-C Primary Care Provider + Walter Pride Primary Care Provider [phone] Encounter Details Date Type Department Care Team (Late st Contact Info) Description 10/12/2022 Telephone [facility] Pediatrics - Endocrinology [address] [place] [id number] Nadya Sosa, [address] [address] Social History Tobacco Use Types Packs/Day Years Used Date Smoking Tobacco: Never Smokeless Tobacco: Never Alcohol Use Standard Drinks/Week Comments Never 0 (1 standard drink = 0.6 oz pur e alcohol) PHQ-2 Answer Date Recorded Patient Health Questionnaire-2 Score 0 12/16/2021 Comments No Sex and Gender Information Value Date Recorded Sex Assigned at Female 10/11/2022 12:37 PM CDT Legal Sex Female 5:42 AM MASTER CONTROL SUPERVISOR Gender Identity Female 10/11/2022 12:37 PM CDT Sexual Orientation Straight 10/11/2022 12 :37 PM CDT documented as of this encounter Functional Status * Is person deaf or have serious hearing difficulty? Answer Date of Assessment Author No 02/07/2021 1:00 PM MASTER CONTROL SUPERVISOR Monica Solis RN * Is person blind [...] encounter Miscellaneous Notes * Telephone Encounter - Nadya Sosa DO - 10/12/2022 10:46 AM CDT I attempted to call Eleni regarding lab results from clinic appointment yesterday. No answer. LMOMto call back. If Eleni returns my call, okay for RN to discuss: - results show her LDL cholesterol is just mildly over the target for diabetes at 109 (<100 target). No need for medication at this time, but I would plan to see the machine technician at next visit, and should recheck at the visit after. - please also verify that she received the pump class via email - please her know the referral to adult endocrinology has been sent. Office number [phone] if she would like to try calling for appointment. documented in this encounter Plan of Treatment Not on file documented as of this encounter Visit Diagnoses Not on filedocumented in this encounter Care Teams Passenger Conductor Relationship Specialty Start Date End Date Lluvia [place] PA-C [address] [place] [address] PCP - General Physician Timber Girdler 09/13/21 04/26/23 Walter Pride [address] [place] [phone] PCP - General 04/27/23 documented as of this encounter
--- OUTSIDE RECORDS SUMMARY | 2024-10-18 18:25 | XMS_ITS | Encounter Summary ---
Author Organization [facility] Address [address] [place] [address] Care Team Providers Care Design Consultant Name Role Phone Lluvia [place] PA-C Primary Care Provider + Walter Pride Primary Care Provider [phone] Encounter Details Date Type Department Care Team (Late st Contact Info) Description 03/03/2022 Telephone [facility] Pediatrics - Diabetes Mgmt [address] [place] [address] Nadya Sosa, [address] [address] Social History Tobacco Use Types Packs/Day Years Used Date Smoking Tobacco: Never Smokeless Tobacco: Never Alcohol Use Standard Drinks/Week Comments Never 0 (1 standard drink = 0.6 oz pur e alcohol) PHQ-2 Answer Date Recorded Patient Health Questionnaire-2 Score 0 12/16/2021 Comments No Sex and Gender Information Value Date Recorded Sex Assigned at Female 10/11/2022 12:37 PM CDT Legal Sex Female 5:42 AM RESPIRATORY CARE ASSISTANT Gender Identity Female 10/11/2022 12:37 PM CDT Sexual Orientation Straight 10/11/2022 12 :37 PM CDT documented as of this encounter Functional Status * Is person deaf or have serious hearing difficulty? Answer Date of Assessment Author No 02/07/2021 1:00 PM RESPIRATORY CARE ASSISTANT Monica Solis RN * Is person blind [...] Telephone Encounter - Keyla Knight RN - 03/04/2022 1:02 PM RESPIRATORY CARE ASSISTANT Received an approval from [facility] for Dexcom G6 Transmitter and Sensor. Approved 03/04/22 - 03/04/23. Pharmacy called and notified. IRATORY CARE ASSISTANT * Telephone Encounter - Larry Beatty - 03/03/2022 10:05 AM CST PA for Dexcom G6 Injection Molding Technician sent through [employer] IRATORY CARE ASSISTANT documented in this encounter Plan of Treatment Not on file documented as of this encounter Visit Diagnoses Not on filedocumented in this encounter Care Teams Design Consultant Relationship Specialty Start Date End Date Lluvia [place] PA-C [address] [place] [phone] PCP - General Physician Chemical Dependency Attendant 09/13/21 04/26/23 Walter Pride [address] [place] [phone] PCP - General 04/27/23 documented as of this encounter
--- OUTSIDE RECORDS SUMMARY | 2024-10-18 18:25 | XMS_ITS | Encounter Summary ---
Author Organization [facility] Address [address] [facility] [place] [address] Care Team Providers Care Cut In Worker Name Role Phone Megan [place] MD Primary Care Provider [phone] Unknown, Provider Primary Care Provider Unavaila ble Megan [place] MD Primary Care Provider [phone] Lluvia [place] PA-C Primary Care Provider + Walter Pride Primary Care Provider [phone] Encounter Details Date Type Department Care Team (Late st Contact Info) Description 02/22/2021 Telephone [facility] Pediatrics - Diabetes [facility] [address] [place] [address] Judy Trevino, FULL STACK JAVA DEVELOPER-SUPERVISOR [place] [address] [place] [address] Social History Tobacco Use Types [...] PM CDT Legal Sex Female 5:42 AM LOTUS NOTES ADMINISTRATOR Gender Identity Female 10/11/2022 12:37 PM CDT [...] encounter Miscellaneous Notes * Telephone Encounter - Leila Ramirez RN - 02/23/2021 3:03 PM LOTUS NOTES ADMINISTRATOR Eleni called to review bgs. See flowsheet. Eleni reports she is currently using 1:7 ratio at mealtimes. Per protocol, increase ICR from 1:7 to 1:6. I asked for family to call tomorrow for further review. Current doses: 1:6 1:40>150 28 units lantus S NOTES ADMINISTRATOR * Telephone Encounter - Keyla Knight RN - 02/22/2021 2:57 PM CST Eleni called to review bgs. See flowsheet. Per protocol, I did not make any adjustments at this time. I asked for Eleni to call tomorrow for further review. Current Doses: Lantus 28 units Meals 1:8 CHO Correction: 1 unit:40>150, maximum of 5 units S NOTES ADMINISTRATOR documented in this encounter Plan of Treatment Not on file documented as of this encounter Visit Diagnoses Not on filedocumented in this encounter Care Teams Cut In Worker Relationship Specialty Start Date End Date Megan [place] MD [address] [place] [phone] PCP - General Pediatrics 01/31/21 06/13/21 Unknown, Provider [address] [place] [phone] PCP - General 06/17/2106/29 Megan [place] MD [address] [place] [phone] PCP - General 06/30/21 09/12/21 Lluvia [place] PA-C [address] [place] [phone] PCP - General Physician Change Control Specialist 09/13/21 04/26/23 Walter Pride [address] [place] [phone] PCP - General 04/27/23 documented as of this encounter
--- OUTSIDE RECORDS SUMMARY | 2024-10-18 18:25 | XMS_ITS | Encounter Summary ---
Author Organization [facility] Address [address] [place] [address] Care Team Providers Care Environmental Engineering Aide Name Role Phone Megan Golden MD Primary Care Provider [phone] Unknown, Provider Primary Care Provider Unavaila ble Megan Golden MD Primary Care Provider [phone] Lluvia Gorman PA-C Primary Care Provider + Walter Pride Primary Care Provider [phone] Encounter Details Date Type Department Care Team (Late st Contact Info) Description 03/04/2021 Telephone [facility] [address] [place] [address] Judy Trevino, ACCOUNT SERVICES ANALYST-OUTSOLE MOLDER [address] [place] [address] Social History Tobacco Use Types [...] PM CDT Legal Sex Female 5:42 AM BOAT OUTBOARD ENGINE MECHANIC Gender Identity Female 10/11/2022 12:37 PM CDT Sexual Orientation Straight 10/11/2022 12 :37 PM CDT COVID-19 Exposure Response Date Recorded In the last month, have you been in contact with someone who was confirmed or suspected to have Coronavirus / COVID-19? No / Unsure 02/26/2021 9:47 AM BOAT OUTBOARD ENGINE MECHANIC documented as of this encounter Functional Status * Is person deaf or have serious hearing difficulty? Answer Date of Assessment Author No 02/07/2021 1:00 PM Monica Blanco RN * Is person blind or have serious difficulty seeing? Answer Date of Assessment Author No 02/07/2021 1:00 PM BOAT OUTBOARD ENGINE MECHANIC Monica Solis RN * Does person have serious difficulty [...] Telephone Encounter - Leila Ramirez RN - 03/11/2021 2:45 PM BOAT OUTBOARD ENGINE MECHANIC Mom called to review bgs. See flowsheet. Per protocol, no changes today. I asked for family to calltomorrow for further review. Current Doses Lantus 28 B 1:5 L 1:5 D 1:6 1:50>150 OUTBOARD ENGINE MECHANIC * Telephone Encounter - Larry Beatty - 03/09/2021 2:53 PM CST Eleni called to review bgs. See flowsheet. Per protocol, I changed breakfast carb ratio to 1:5. I asked for family to call for further review. Set up appointment for dexcom set up for 03/12/2021 at 1000. Current Doses Lantus 28 B 1:5 L 1:5 D 1:6 1:50>150 OUTBOARD ENGINE MECHANIC * Telephone Encounter - Larry Beatty - 03/08/2021 3:03 PM CST Attempted to return call to Eleni. Left message on machine. OUTBOARD ENGINE MECHANIC * Telephone Encounter - Leila Ramirez RN - 03/04/2021 1:46 PM BOAT OUTBOARD ENGINE MECHANIC Received fax from [employer] for coverage of Dexcom G6 Recevier. Approved for 1 year, 03/04/21 - 03/04/22. OUTBOARD ENGINE MECHANIC * Telephone Encounter - Keyla Knight RN - 03/04/2021 1:21 PM CST Received fax from [employer] for coverage of Dexcom G6 Transmitter and Sensor. Approved for 1 year, 03/04/21 - 03/04/22. Pharmacy called and notified. OUTBOARD ENGINE MECHANIC documented in this encounter Plan of Treatment Not on file documented as of this encounter Visit Diagnoses Not on filedocumented in this encounter Care Teams Environmental Engineering Aide Relationship Specialty Start Date End Date Megan Golden MD [address] [place] [phone] PCP - General Pediatrics 01/31/21 06/13/21 Unknown, Provider [address] [place] [phone] PCP - General 06/17/2106/29 Megan Golden MD [address] [place] [phone] PCP - General 06/30/21 09/12/21 Lluvia Gorman PA-C [address] [place] [address] PCP - General Physician Dive Superintendent 09/13/21 04/26/23 Walter Pride [address] [place] [phone] PCP - General 04/27/23 documented as of this encounter
--- OUTSIDE RECORDS SUMMARY | 2024-10-18 18:25 | XMS_ITS | Clinical Summary ---
Author Organization [facility] Address [address] [place] [address] Care Team Providers Care Environmental Web Crawler Name Role Phone Walter Pride Primary Care Provider [phone] Source Comments [facility],non-owned Affiliates and Associated Physician Practices is amultiple site organization consisting of ambulatory clinics and hospital sitesin [place], [place], [place] and [place]. This disclosure is being madepursuant to the Care Everywhere program and may not contain all information available regarding this patient. Last updated 17.[facility] Allergies No known active allergies Medications * This document contains information received from the source organization and may not represent a complete record from that organization. * Be aware that medications may not be up to date on this document. Alwaysverify current medications with the patient. albuterol HFA (PROVENTIL; VENTOLIN; PROAIR) 108 (90 Base) MCG/ACT inhaler 09/18/19 21 Active fluticasone propionate (FLONASE) 50 MCG/ACT nasal spray 09/18/19 21 Active acetaminophen (TYLENOL) 325 MG tablet Take 1 (one) tablet by mouth every 4 hours as needed for Fever or Pain Maximum allowable Acetaminophen amount = 4 Grams (4000 mg) / 24 hours. Active ibuprofen (MOTRIN) 200 MG tablet Take by mouth every 6 hours as needed for Pain Active meloxicam (MOBIC) 7.5 MG tabletIndication s:Chronic bilateral thoracic back pain Take 1.5 (one and one-half) tablets by mouth once daily 45 tablet 3 04/12/19 22 Active Insulin Pen Needle 31G X 6 MM MISC Use to administer insulin 4-6 times per day 200 Each 11 05/21/19 22 Active bisacodyl (DULCOLAX) 10 MG suppository 05/13/19 22 Active STIMULANT LAXATIVE 8.6-50 MG tablet 05/13/19 22 Active LINZESS 145 MCG capsule Take 1 (one) capsule by mouth once daily 08/27/19 22 Active omeprazole (PRILOSEC) 40 MG capsule Take 1 (one) capsule by mouth once daily 08/27/19 22 Active Aviane 0.1-20 MG-MCG tablet 03/18/19 23 Active Insulin Pen Needle (Pen [place]) 32G X 4 MM MISCIndications: Type 1 diabetes mellitus without complication (HCC) Use 1 Each as directed To administer insulin 4-6 times per day 200 Each 11 06/16/19 23 Active insulin pen needle (Novofine 31) 31G X 5 MM needleIndication s:Type 1 diabetes mellitus without complication (HCC) 1 (one) Each by Injection route as directed To administer insulin 4-6 times per day 200 Each 11/24/19 23 Active insulin lispro (HumaLOG KwikPen) 100 UNIT/ML pen Administer 1 unit per 5-6 grams of carbs. Max daily dose 60 units. 30 mL 5 12/30/19 23 Active Continuous Blood Gluc Transmit (Dexcom G6 Transmitter) MISCIndications: Type 1 diabetes mellitus without complication (HCC) Use 1 Each Every 90 days 1 Each 3 02/17/19 24 Active acetone,urine, (Ketostix) strip Use to check urine for ketones if BG>250 or ill 100 strip 03/23/19 24 Active FLUoxetine (PROzac) 20 MG capsule TAKE 1 CAPSULE BY MOUTH ONCE DAILY IN THE MORNING 04/05/19 24 Active Lancets (True Link FinancialTOUCH DELICA PLUS 33G EXTRA FINE LANCET)Indicatio ns:Type 1 diabetes mellitus without complication (HCC) Use to test blood sugar 5-7 times a day 200 Each 05/03/19 24 Active Glucagon (Baqsimi Two Pack) 3 MG/DOSE POWD Ninole 3 mg into the nose as needed (severe low blood glucose) 1 Each 05/03/19 24 Active Blood Glucose Monitoring Suppl (FullCircle Registry Verio) w/Device KITIndications:T ype 1 diabetes mellitus without complication (HCC) Use 1 Each as directed 1 kit 1 05/09/19 24 Active Blood Glucose Monitoring Suppl (True Metrix Meter) w/Device KITIndications:T ype 1 diabetes mellitus without complication (HCC) Use 1 kit as directed 1 kit 1 05/09/19 24 Active blood glucose (True Metrix Blood Glucose Test) test stripIndications :Type 1 diabetes mellitus without complication (HCC) Use to test blood sugar 1-4 times a day as directed. 100 strip 5 05/09/19 24 Active TRUEplus Lancets 33G MISCIndications: Type 1 diabetes mellitus without complication (HCC) Use 1 Each as directed 100 Each 5 05/09/19 24 Active Insulin Pen Needle (BD Pen Needle Hailee U/F) 32G X 4 MM MISCIndications: Type 1 diabetes mellitus without complication (HCC) Use 1 Each as directed To administer insulin 4-6 times per day 200 Each 2 06/02/19 24 Active Continuous Blood Gluc Sensor (Dexcom G6 Sensor) MISCIndications: Type 1 diabetes mellitus without complication (HCC) Use 1 Each every 10 days 3 Each 1 05/29/19 24 Active insulin glargine (Lantus SoloStar) penIndications:T ype 1 diabetes mellitus without complication (HCC) Administer 28 units daily. Allow 2 unit prime 15 mL 1 05/29/19 24 Active Glucagon (Baqsimi Two Pack) 3 MG/DOSE POWD Ninole 3 mg into the nose as needed (administer as directed for severe low blood sugar) 1 Each 05/29/19 24 Active blood glucose (OneTouch Verio) test stripIndications :Type 1 diabetes mellitus without complication (HCC) Used to check blood sugar 1-2 times per day while on Dexcom 100 strip 1 07/17/19 24 Active Continuous Glucose Mechanical Engineering Officer (Dexcom G6 Mechanical Engineering Officer) DEVIIndications: Type 1 diabetes mellitus without complication (HCC) USE 1 DIRECTED 1 Each 08/25/19 24 Active Active Problems Problem Noted Date Diagnosed Date Chronic bilateral thoracic back pain 04/13/2021 Arthralgia 04/13/2021 Type 1 diabetes mellitus without complication Overview (02/09/2023): Dx 02/07/21 - + DONN and IA-2 antibodies On multiple daily injections (with carb counting) and monitored by Dexcom. date result TSH 03/26/21 1.781 TTG IgA 02/07/21 <2 LDL 10/11/22 109 BP 10/11/22 120/68 One hospitalization since diagnosis, 05/10/21 admitted for [facility] with starvation ketosis. Assessment & Plan (02/09/2021 9:03 AM EMERGENCY MANAGEMENT COORDINATOR): Assessment: Catina is an 20 y/o female presenting in severe diabetic ketoacidosis with altered mental status in setting of new diagnosis of type 1 diabetes. She was managed in ICU with insulin drip and two bag system protocol. Her labs in ICU are significant for persistent hyperchloremia and hypokalemia. She was transferred to floors on 02/08/21 for further management of her diabetes, hypokalemia and hyperchloremia. Plan: FEN/GI - Carb counting diet - For Hyperkalemia, 1/2 NS+ 40 mEq KCL at 80 mL/hr - Scheduled Potassium chloride supplements q12 - Strict I/O's - BMP q8, next check 1200 ENDO - Lantus 20 units q24h - Carb ratio- 1:12 grams of carbohydrates - Correction factor- 1 unit of insulin for every 50 over 150 mg/dL - For overnight correction, 1/2 unit of insulin for glucose > 300 mg/dL - PRN glucagon - Diabetes education starting on 02/09/21 ID - Patient tested positive for adenovirus, Coronavirus 229HE, COVID 19 - Monitor signs of infection, increased oxygen demand NEURO: - Awake and alert - Monitoring signs of AMS - PRN Tylenol CVS/RESP - No acute concerns - DARIN - Vital signs 5x/day Encounters Date Type Department Care Team Description 08/28/2024 Refill [facility] Pediatrics - Diabetes [place] [id number] [facility] [place] [address] Ashley Lopez, DO Refill Request from Last 3 Months Family History Medical History Relation Name Comments Lupus Mother Arthritis - Rheumatoid Neg Hx Celiac Disease Neg Hx Crohn's Disease Neg Hx Psoriasis Neg Hx Thyroid Disease Neg Hx Ulcerative Colitis Neg Hx Relation Name Status Comments Mother Social History Tobacco Use Types Packs/Day Years Used Date Smoking Tobacco: Never Smokeless Tobacco: Never Alcohol Use Standard Drinks/Week Comments Never 0 (1 standard drink = 0.6 oz pur e alcohol) PHQ-2 Answer Date Recorded Patient Health Questionnaire-2 Score 0 12/16/2021 Comments No Sex and Gender Information Value Date Recorded Sex Assigned at Female 10/11/2022 12:37 PM CDT Legal Sex Female 5:42 AM EMERGENCY MANAGEMENT COORDINATOR Gender Identity Female 10/11/2022 12:37 PM CDT Sexual Orientation Straight 10/11/2022 12 :37 PM CDT Last Filed Vital Signs Vital Sign Reading Time Taken Comments Blood Pressure 110/68 04/27/2023 1:57 PM CDT Pulse 98 04/12/2021 3:05 PM EMERGENCY MANAGEMENT COORDINATOR Temperature 36.7 C (98.1 F) 04/12/2021 3:05 PM EMERGENCY MANAGEMENT COORDINATOR Respiratory Rate 24 04/12/2021 3:05 PM EMERGENCY MANAGEMENT COORDINATOR Oxygen Saturation 98% 04/12/2021 3:05 PM EMERGENCY MANAGEMENT COORDINATOR Inhaled Oxygen Concentration - - Weight 57.6 kg (126 lb 15.8 oz) 04/27/2023 1:57 PM CDT Height 152.6 cm (5' 0.08) 04/27/2023 1:57 PM CD T Body Mass Index 24.73 04/27/2023 1:57 PM CDT Plan of Treatment Health Maintenance Due Date Last Done Comments HIV SCREENING 2017 HPV VACCINE (1 - 3-dose series) 2017 MENINGOCOCCAL (Group B) VACCINE SHARED DECISION-MAKING (1 of 2 - Standard) 2018 HEPATITIS C SCREENING 12/16/2020 DIABETES RETINOPATHY SCREENING 02/07/2021 DTAP/TDAP/TD VACCINES (1 - Tdap) 2021 HEPATITIS B VACCINE (1 of 3 - 19+ 3-dose series) 2021 PNEUMOCOCCAL VACCINE (1 of 2 - PCV) 2021 DIABETES-FOOT EXAM WITH MONOFILAMENT 09/13/2022 09/13/2021 PAP SMEAR 12/22/2023 DEPRESSION SCREENING 02/14/2024 03/31/2022, 09/14/19 22 DIABETES - URINE PROTEIN SCREENING 02/14/2024 CHLAMYDIA/GONORRHEA SCREENING 09/02/2024 09/03/2023 DIABETES-HGB A1C 09/16/2024 03/19/2024, , 09/14/2023, Additional history exists COVID-19 VACCINE ( season) 2024 INFLUENZA VACCINE (#1) 2024 , 02/09/2023, 12/22/2014, Additional history exists DIABETES-SERUM CREATININE 11/14/20242023, 11/15/2023, 05/04/2022, Additional history exists ZOSTER VACCINE (1 of 2) 2052 HIB VACCINE Aged Out No longer eligi ble based on patient's age to complete this topic MENINGOCOCCAL GROUPS A/C/Y/W VACCINE Aged Out No longer eligible based on patient's age to complete this topic Procedures Procedure Name Priority Date/Time Associated Diagnosis Comments HEMOGLOBIN A1C - POCT INTERFACED Routine 04/27/2023 1:57 PM CDT BASIC METABOLIC PANEL (CALCIUM TOTAL) Routine 06/14/2021 11:43 AM CDT Hypokalemia from Last 3 Months or Most Recently Relevant to Health Maintenance Results * (ABNORMAL) HEMOGLOBIN A1C - POCT INTERFACED (04/27/2023 1:57 PM CDT) Hemoglobin A1C POCT 8.0(H) <5.7 % 04/27/2023 2:06 PM CDT [facility] Estimated Average Glucose 183 mg/dL 04/27/2023 2:06 PM CDT [facility] Blood BLOOD SPECIMEN / Unknown 04/27/2023 1:57 PM CDT 04/27/2023 2:06 PM CDT Narrative [facility] - 04/27/2023 2:06 PM CDT HbA1c Interpretation: Normal: < 5.7% Pre-diabetes: 5.7-6.4% Diabetes: Equal to or greater than 6.5% This test should only be used to monitor, not diagnose diabetes. Test results diagnostic of diabetes should be repeated by another method with a different assay principle for confirmation. Treatment target values recommended by ADA and other clinical organizations should be used to evaluate metabolic control in patients. Patients with a hemoglobin of <7 or >24 should not be tested using this method. Patients known to have these conditions should be assayed by a test employing a different assay principle. Glycated hemoglobin F is not measured by the DCA HbA1c assay. At very high levels of hemoglobin F (> 10%), HbA1c is lower than expected. Patients with HbS or HbE should not be tested using this device. HbS or HbE cause a higher result than expected. Conditions such as hemolytic anemia, polycythemia, homozygous and HbC, can result in decreased life span of the red blood cells, which causes HbA1c results to be lower than expected. The Siemens DCA assay for the measurement of HbA1c is a National Glycohemoglobin Standardization Program (NGSP) certified method. us Nadya Sosa DO LAB - POINT OF CARE ORDERA BLES Final Result [facility] [address] [place] [address] * (ABNORMAL) BASIC METABOLIC PANEL (CALCIUM TOTAL) (06/14/2021 11:43 AM CDT) BUN 16 7 - 26 mg/dL 06/14/2021 12:48 PM [facility] Creatinine 0.45(L) 0.56 - 0.96 mg/dL 06/14/2021 12:48 PM [facility] Sodium 136 136 - 145 mmol/L 06/14/2021 12:48 PM [facility] Potassium 3.9 3.5 - 4.5 mmol/L 06/14/2021 12:48 PM [facility] Chloride 100 98 - 107 mmol/L 06/14/2021 12:48 PM [facility] CO2 24 22 - 29 mmol/L 06/14/2021 12:48 PM [facility] Glucose 186(H) 70 - 115 mg/dL 06/14/2021 12:48 PM [facility] Calcium 10.5(H) 8.4 - 10.2 mg/dL 06/14/2021 12:48 PM [facility] Anion Gap 16 8 - 18 06/14/2021 12:48 PM [facility] BUN/Creatinine Ratio 36(H) 7 - 23 06/14/2021 12:48 PM [facility] Osmolality Calculated 288 270 - 300 mOsm/kg 06/14/2021 12:48 PM CDT [facility] eGFR by CKD-EPI >90 >=90 mL/min/1.7 3 m2 06/14/2021 12:48 PM CDT [facility] Blood BLOOD SPECIMEN / Unknown Venipuncture / Unknown 06/14/2021 11:43 AM CDT 06/14/2021 12:17 PM CDT Nadya Sosa DO LAB - CHEMISTRY ORDERABLES Final Result [facility] [address] [place] [address], [facility] [phone] from Last 3 Months or Most Recently Relevant to Health Maintenance Insurance [facility] Care Teams Environmental Web Crawler Relationship Specialty Start Date End Date Walter Pride [address] [place] [phone] PCP - General 04/27/23
--- OUTSIDE RECORDS SUMMARY | 2024-10-18 18:25 | XMS_ITS | Encounter Summary ---
Author Organization [facility] Address [address] [place] [address] Care Team Providers Care Banquet Pilot Name Role Phone Megan Golden MD Primary Care Provider [phone], Provider Primary Care Provider Unavaila ble Megan Golden MD Primary Care Provider [phone] Lluvia Gorman PA-C Primary Care Provider + Walter Pride Primary Care Provider [phone] Reason for Visit * Reason Onset Date Comments MEDICATION REFILL 03/31/2021 Encounter Details Date Type Department Care Team (Late st Contact Info) Description 03/31/2021 Refill [facility] Pediatrics - Diabetes [address] [address] Judy Trevino, FAMILY AND CONSUMER SCIENCE PROFESSOR-RETAIL SALES ADVISOR [address] [place] [phone] MEDICATION REFILL Social History Tobacco Use Types Packs/Day Years Used Date Smoking Tobacco: Never Smokeless Tobacco: Never Alcohol Use Standard Drinks/Week Comments Never 0 (1 standard drink = 0.6 oz pur e alcohol) PHQ-2 Answer Date Recorded Patient Health Questionnaire-2 Score 2 03/29/2021 Comments Unknown Sex and Gender Information Value Date Recorded Sex Assigned at Female 10/11/2022 12:37 PM CDT Legal Sex Female 5:42 AM FACTORER Gender Identity Female 10/11/2022 12:37 PM CDT Sexual Orientation Straight 10/11/2022 12 :37 PM CDT COVID-19 Exposure Response Date Recorded In the last month, have you been in contact with someone who was confirmed or suspected to have Coronavirus / COVID-19? No / Unsure 03/26/2021 9:17 AM FACTORER documented as of this encounter Functional Status * Is person deaf or have serious hearing difficulty? Answer Date of Assessment Author No 02/07/2021 1:00 PM Monica Blanco RN * Is person blind or have serious difficulty seeing? Answer Date of Assessment Author No 02/07/2021 1:00 PM Monica Blanoc RN * Does person have serious difficulty [...] uncontrolled documented in this encounter Care Teams Banquet Pilot Relationship Specialty Start Date End Date Megan Golden MD [address] [place] [phone] PCP - General Pediatrics 01/31/21 06/13/21 Unknown, Provider [address] [place] [phone] PCP - General 06/17/2106/29 Megan Golden MD [address] [place] [phone] PCP - General 06/30/21 09/12/21 Lluvia Gorman PA-C [facility] [place] [phone] PCP - General Physician Dial Marker 09/13/21 04/26/23 Walter Pride [address] [place] [phone] PCP - General 04/27/23 documented as of this encounter
--- OUTSIDE RECORDS SUMMARY | 2024-10-18 18:25 | XMS_ITS | Encounter Summary ---
Author Organization [facility] Address [address] [place] [address] Care Team Providers Care Assessment Nurse Name Role Phone Megan Golden MD Primary Care Provider [phone] Unknown, Provider Primary Care Provider Unavaila ble Megan Golden MD Primary Care Provider [phone] Lluvia Gorman PA-C Primary Care Provider + Walter Pride Primary Care Provider [phone] Encounter Details Date Type Department Care Team (Late st Contact Info) Description 02/19/2021 Telephone [facility] Pediatrics - Diabetes [facility] [address] [place] [address] Judy Trevino, SPORT PSYCHOLOGIST-MANAGER BRAND [address] [place] [address] Social History Tobacco Use Types Packs/Day Years Used Date Smoking Tobacco: Never Smokeless Tobacco: Never Alcohol Use Standard Drinks/Week Comments Never 0 (1 standard drink = 0.6 oz pur e alcohol) Comments Unknown Sex and Gender Information Value Date Recorded Sex Assigned at Female 10/11/2022 12:37 PM CDT Legal Sex Female 5:42 AM BOOKKEEPING MACHINE MECHANIC Gender Identity Female 10/11/2022 12:37 PM [...] Telephone Encounter - Keyla Knight RN - 02/19/2021 9:54 AM CST Eleni called to review bgs. See flowsheet. Per protocol, I adjusted Lantus from 25 units to 28 units. I asked for family to call tomorrow for further review. Current insulin doses: Lantus 28 units Meals ??1:8 CHO Correction 1 u 50 >150 KEEPING MACHINE MECHANIC documented in this encounter Plan of Treatment Not on file documented as of this encounter Visit Diagnoses Not on filedocumented in this encounter Care Teams Assessment Nurse Relationship Specialty Start Date End Date Megan Golden MD [address] [place] [phone] PCP - General Pediatrics 01/31/21 06/13/21 Unknown, Provider [address] [place] [phone] PCP - General 06/17/2106/29 Megan Golden MD [address] [place] [phone] PCP - General 06/30/21 09/12/21 Lluvia Gorman PA-C [address] [place] [phone] PCP - General Physician Nitric Acid Concentrator Operator 09/13/21 04/26/23 Walter Pride [address] [place] [phone] PCP - General 04/27/23 documented as of this encounter
--- OUTSIDE RECORDS SUMMARY | 2024-10-18 18:25 | XMS_ITS | Encounter Summary ---
Author Organization [facility] Address [address] [facility] [place] [address] Care Team Providers Care Soccer Player Name Role Phone Walter Pride Primary Care Provider [phone] Reason for Visit * Reason Onset Date Comments MEDICATION REFILL 05/26/2023 Encounter Details Date Type Department Care Team (Late st Contact Info) Description 05/26/2023 Refill [facility] Pediatrics - Diabetes Mgmt [address] [place] [address] Nadya Sosa, [address] [address] MEDICATION REFILL Social History Tobacco Use Types [...] PM CDT Legal Sex Female 5:42 AM COMPUTER APPLICATION DEVELOPER Gender Identity Female 10/11/2022 12:37 PM CDT Sexual Orientation Straight 10/11/2022 12 :37 PM CDT documented as of this encounter Functional Status * Is person deaf or have serious hearing difficulty? Answer Date of Assessment Author No 02/07/2021 1:00 PM COMPUTER APPLICATION DEVELOPER Monica Solis RN * Is person blind [...] uncontrolled documented in this encounter Care Teams Soccer Player Relationship Specialty Start Date End Date Walter Pride [address] [place] [phone] PCP - General 04/27/23 documented as of this encounter
--- OUTSIDE RECORDS SUMMARY | 2024-10-18 18:25 | XMS_ITS | Encounter Summary ---
Author Organization [facility] Address [address] [place] [address] Care Team Providers Care Industrial Waste Inspector Name Role Phone Megan Golden MD Primary Care Provider [phone] Unknown, Provider Primary Care Provider Unavaila ble Megan Golden MD Primary Care Provider [phone] Lluvia Gorman PA-C Primary Care Provider + Walter Pride Primary Care Provider [phone] Encounter Details Date Type Department Care Team (Late st Contact Info) Description 02/25/2021 Telephone [facility] Pediatrics - Diabetes [facility] [address] [place] [address] Judy Trevino, MANAGEMENT ADVISOR-FIBREGLASS LAMINATOR [address] [place] [address] Social History Tobacco Use Types [...] PM CDT Legal Sex Female 5:42 AM NOVELTIES SALES REPRESENTATIVE Gender Identity Female 10/11/2022 12:37 PM CDT Sexual Orientation Straight 10/11/2022 12 :37 PM CDT COVID-19 Exposure Response Date Recorded In the last month, have you been in contact with someone who was confirmed or suspected to have Coronavirus / COVID-19? No / Unsure 02/26/2021 9:47 AM NOVELTIES SALES REPRESENTATIVE documented as of this encounter Functional Status [...] Assessment Author No 02/07/2021 1:00 PM Monica lBanco RN * Does person have difficulty doing [...] * Telephone Encounter - Larry Beatty - 03/02/2021 3:16 PM CST Faxed chart notes to Hoda Mojica G6 PA LTIES SALES REPRESENTATIVE * Telephone Encounter - Larry Beatty - 03/02/2021 2:58 PM CST Eleni called to review bgs. See flowsheet. Per protocol, asked Eleni to begin using a carb ratio of 1:5 for her lunch time meal only. Other meals will stay at 1:6. I asked for Eleni to call Mondayfor further review. Current doses: Lantus: 28 units B 1:6 L 1:5 D 1:6 1:50>150 LTIES SALES REPRESENTATIVE * Telephone Encounter - Larry Beatty - 03/02/2021 2:46 PM CST Attempted to call Eleni back for blood sugar review. No answer. LMOM asking for her to call us back. LTIES SALES REPRESENTATIVE * Telephone Encounter - Leila Ramirez RN - 03/02/2021 8:31 AM NOVELTIES SALES REPRESENTATIVE Attempted to call Eleni back for bg review. No answer. LMOM asking to call back to review. LTIES SALES REPRESENTATIVE * Telephone Encounter - Keyla Knight RN - 02/25/2021 2:45 PM CST Eleni called to review bgs. See flowsheet. Per protocol, I did not make any adjustments at this time. I applauded her efforts. Eleni has an appointment with TYREL Dove tomorrow. Instructed her to bring her log book and meter to appointment. Current doses: 1:6 1:40>150 28 units lantus LTIES SALES REPRESENTATIVE documented in this encounter Plan of Treatment Not on file documented as of this encounter Visit Diagnoses Not on filedocumented in this encounter Care Teams Industrial Waste Inspector Relationship Specialty Start Date End Date Megan Golden MD [address] [place] [phone] PCP - General Pediatrics 01/31/21 06/13/21 Unknown, Provider [address] [place] [phone] PCP - General 06/17/2106/29 Megan Golden MD [address] [place] [phone] PCP - General 06/30/21 09/12/21 Lluvia Gorman PA-C [address] [place] [phone] PCP - General Physician Planning Manager 09/13/21 04/26/23 Walter Pride [address] [place] [phone] PCP - General 04/27/23 documented as of this encounter
--- OUTSIDE RECORDS SUMMARY | 2024-10-18 18:25 | XMS_ITS | Encounter Summary ---
Author Organization [facility] Address [address] [place] [address] Care Team Providers Care Arts And Crafts Teacher Name Role Phone Megan Golden MD Primary Care Provider [phone] Unknown, Provider Primary Care Provider Unavaila ble Megan Golden MD Primary Care Provider [phone] Lluvia Gorman PA-C Primary Care Provider + Walter Pride Primary Care Provider [phone] Encounter Details Date Type Department Care Team (Late st Contact Info) Description 02/18/2021 Telephone [facility] Pediatrics - Diabetes [facility] [address] [place] [address] Judy Trevino, SENIOR BI DEVELOPER-TANKROOM TENDER [address] [place] [address] Social History Tobacco Use Types Packs/Day Years Used Date Smoking Tobacco: Never Smokeless Tobacco: Never Alcohol Use Standard Drinks/Week Comments Never 0 (1 standard drink = 0.6 oz pur e alcohol) Comments Unknown Sex and Gender Information Value Date Recorded Sex Assigned at Female 10/11/2022 12:37 PM CDT Legal Sex Female 5:42 AM BODYWORK THERAPIST Gender Identity Female 10/11/2022 12:37 PM CDT [...] Telephone Encounter - Keyla Knight RN - 02/18/2021 10:34 AM BODYWORK THERAPIST Eleni called to review bgs. Eleni states she is feeling much better since discharge. See flowsheet. Per protocol, I did not make any adjustments at this time. I asked for family to call tomorrow for further review. Current insulin doses: Lantus 25 units Meals 1:8 CHO Correction 1 u 50 >150 WORK THERAPIST * Telephone Encounter - Keyla Knight RN - 02/18/2021 10:11 AM BODYWORK THERAPIST Eleni called and left a voicemail to review bgs. Called her back, no answer. LMOM to call us back when it was a good time to review bgs WORK THERAPIST documented in this encounter Plan of Treatment Not on file documented as of this encounter Visit Diagnoses Not on filedocumented in this encounter Care Teams Arts And Crafts Teacher Relationship Specialty Start Date End Date Megan Golden MD [address] [place] [phone] PCP - General Pediatrics 01/31/21 06/13/21 Unknown, Provider [address] [place] [phone] PCP - General 06/17/2106/29 Megan Golden MD [address] [place] [phone] PCP - General 06/30/21 09/12/21 Lluvia Gorman PA-C [address] [place] [phone] PCP - General Physician Ditch Tender 09/13/21 04/26/23 Walter Pride [address] [place] [phone] PCP - General 04/27/23 documented as of this encounter
--- OUTSIDE RECORDS SUMMARY | 2024-10-18 18:25 | XMS_ITS | Clinical Summary ---
Author Organization [facility] [address] [facility] Address [address] [place] [address] Care Team Providers Care Charhouse Worker Name Role Phone Dada Beckford MD Unavailable Lluvia Gorman Primary Care Provider [phone] Allergies No known active allergies Medications OneTouch Delica Plus Lancet 33 gauge misc TEST BLOOD SUGAR 5-7 TIMES DAILY 024 Active pen needle, diabetic (Pen Needle) 31 gauge x 3/16 needle Inject 1 each as directed as directed 023 Active insulin formula technician cart,aut,G6/7,cnt r (Omnipod 5 G6-G7 Intro Kt,Gen5,) cartridge Use for insulin administration 1 each 024 Active insulin pump cart,automated,BT (Omnipod 5 G6 Pods, Gen 5,) cartridge Use for insulin administration 30 each 2 024 Active LANTUS 100 unit/mL (3 mL) pen for injection Inject 30 Units under the skin nightly 15 mL 3 024 Active Omnipod 5 G6 Intro Kit, Gen 5, cartridgeIndicati ons:Type 1 diabetes mellitus with hyperglycemia (HCC) USE FOR INSULIN ADMINISTRATION 1 each 024 Active Dexcom G6 Powdered Sugar Pulverizer Operator misc as directed 024 Active hydrOXYzine (ATARAX) 10 mg tablet Take 1 tablet (10 mg total) by mouth 3 (three) times a day as needed Active glucagon (Baqsimi) 3 mg/actuation spray,non-aerosol Administer 1 spray (3 mg total) into one nostril as needed (For hypoglycemia) 3 each 11 Active insulin lispro (HumaLOG, ADMELOG) 100 unit/mL pen for injection Take 1 unit per 5 grams of carbs and add 1 for every 50 points sugar over 150 up to 30 units daily 15 mL 3 025 Active ondansetron ODT (ZOFRAN-ODT) 4 mg disintegrating tabletIndications :Gastroparesis DISSOLVE 1 TABLET IN MOUTH EVERY 8 HOURS NEEDED FOR NAUSEA AND VOMITING 30 tablet 025 Active OneTouch Verio test strips strip Test blood sugar 1-2 times daily while on Dexcom 100 each 1 Active Alcohol Prep Pads pads, medicated 025 Active Contour Plus Blue Meter misc USE TO CHECK BLOOD SUGARS THREE TIMES DAILY 025 Active Aviane 0.1-20 mg-mcg per tablet TAKE 1 TABLET BY MOUTH ONCE DAILY DIRECTED FOR 28 DAYS Active nitrofurantoin monohydrate (MACROBID) 100 mg capsule TAKE 1 CAPSULE BY MOUTH TWICE DAILY FOR 7 DAYS Active traMADoL (ULTRAM) 50 mg tablet Take 1-2 tablets (50-100 mg total) by mouth every 6 (six) hours as needed Active buPROPion XL (WELLBUTRIN XL) 300 mg 24 hr tablet Take 1 tablet (300 mg total) by mouth every morning 025 Active Microlet Lancet misc USE DIRECTED THREE TIMES DAILY 025 Active insulin lispro (HumaLOG) 100 unit/mL vial for injectionIndicati ons:Type 1 diabetes mellitus with hyperglycemia (HCC) Insulin pump to inject under skin. Up to 70 units/day. 50 mL 3 025 Active vitamin ferrous fumarate-folic () 28 mg iron- 800 mcg tablet Take 1 tablet by mouth daily 30 tablet 11 025 2025 Active miSOPROStoL (CYTOTEC) 200 mcg tablet Insert 4 tablets into the vagina and 12-24 hours later, insert 4 tablets into your mouth and hold in your cheek for at least 30 minutes while they dissolve 8 tablet 025 Active Dexcom G6 Sensor deviceIndications :Type 1 diabetes mellitus with hyperglycemia (HCC) Use for BG monitoring, change every 10 days 9 each 3 025 Active Dexcom G6 Transmitter deviceIndications :Type 1 diabetes mellitus with hyperglycemia (HCC) Change transmitter every 90 days 1 each 3 025 Active insulin pump cart,auto,BT,G6/7 (Omnipod 5 G6-G7 Pods, Gen 5,) cartridgeIndicati ons:Type 1 diabetes mellitus with hyperglycemia (HCC) USE DIRECTED WITH INSULIN ADMINISTRATION 30 each 3 025 Active Omnipod 5 G6-G7 Pods, Gen 5, cartridgeIndicati ons:Type 1 diabetes mellitus with hyperglycemia (HCC) USE DIRECTED WITH INSULIN ADMINISTRATION 30 each 025 2024 Discontinued Active Problems Problem Noted Date Diagnosed Date Type 1 diabetes mellitus aff ecting in first trimester, antepartum 08/29/2024 Overview (09/06/2024): History: T1DM w/ gastroparesis. Previously used reglan for gastroparesis, currently well controlled. Follows with GI. Followed by [facility] Endocrinology, however switching to an Construction Project Engineer in [place], [place]. Diagnosed age: [age] years old History of DKA? yes:only at time of diagnosis Pre- hemoglobin A1C: 6.8% on 08/01/24 Pre- regimen: Omnipod 5, Dexcom - been on pump for ~ 1 year Pre- pump settings: Time Basal Rate ISF ICR BG Target Insulin Duration 0000 0.8 40 10 110 2 1400 0.9 40 10 110 2 1900 1.0 40 10 110 2 Pre- TDD of insulin: 55 units Pre- weight: 142 lbs CGM/pump login Username/email: [email or web address] Password: ! Counseling 08/29/2024: is generally a state of insulin resistance, the one exception being late first trimester when relatively higher levels of estrogen may enhance insulin sensitivity and increase the maternal hypoglycemia, especially when associated with nausea and vomiting. As such, insulin requirements will likely change during and frequent monitoring is required throughout . This close monitoring, in combination with diabetic education, exercise, and diet control, is recommended to achieve optimal glycemic control. We reviewed that goal blood glucose values are generally a fasting or premeal glucose of 95 mg/dL or less and a 1- hour postprandial glucose of 140 mg/dL or less. We recommend checking blood sugar fasting, before each meal, and 1 hour after eating. If a continuous glucose monitor is worn the goal glucose control is a Time in Range (TIR, 70-140 mg/dL) of 70% or greater (as well as a Time Above Range >140 mg/dL <25%, Time Below Range <4% and a very low TBR 1%). The patient should also check urine ketones when their glucose level exceeds 200 mg/dL and should have glucagon available in case of hypoglycemic episodes. We also reviewed the increased maternal and risks associated with type 1 diabetes in . We discussed that major congenital anomalies (cardiac, neurologic, and skeletal) are the leading cause of mortality in pregnancies complicated by diabetes and is directly related to hemoglobin A1C values. A HgbA1c level of 10% is associated with a ~10% anomaly rate, and a HgbA1c of 13% is associated with a ~20% anomaly rate. A starting HgbA1c of 6.8% is associated with a 5.2% anomaly rate and a 8% risk of miscarriage. Other risks include large for gestational age or small for gestational age infants, delivery, and stillbirth. There is also a 1 in 25 risk that a child of a mother with T1DM will develop T1DM, however diagnostic testing is not available. Maternal risks discussed include exacerbation of diabetes-related complications (particularly retinopathy and nephropathy), hypertensive disorders of , shoulder dystocia, and need for delivery. We also discussed that outcomes are best with optimal glycemic control. Lastly, we discussed that insulin drip will likely be required in labor. We discussed that a first trimester anatomic survey, second trimester specialized anatomic survey, serial growth ultrasounds, and surveillance twice weekly starting at 32 weeks gestation are recommended. We discussed that a echocardiogram is recommended in the second trimester given the increased risk of anomalies in T1DM. We reviewed that an estimated weight >4500 g at the time of delivery would be an indication for a delivery. Plan - Current regimen: 09/06/2024 Time Basal Rate ISF ICR BG Target Insulin Duration 0000 0.8 40 10 110 2 1400 0.9 40 10 110 2 1900 1.0 40 10 110 2 09/06/2024 - patient previously concerned about the amount of insulin she was receiving and was giving herself half insulin with the start of the meal and half as she was eating. Based on her blood glucose, I would encourage her to give the full ICR with her meal. If she willing to do that then we will make no other changes and continue weekly monitoring. Backup insulin plan: need to verify next visit - Physician adjusting insulin dosage: MFM [] Recommend weekly review of BG/insulin data to adjust insulin dosing [] Diabetes education - referral ordered [x] Glucagon prescribed - already has this [x] Referral to ophthalmology for comprehensive eye exam - up to date 10/2023 [] Baseline CMP, UPC, TSH - needs with primary OB [] HgbA1c qTrimester [x] 1st T: 6.8% - 08/01/24 [] 2nd T: [] 3rd T: [] Low dose ASA starting at 12 weeks - discussed [] Baseline EKG, consider maternal ECHO (if long standing disease, other comorbidities) needs with primary OB [] 1st trimester anatomy US - to be ordered next visit [] Specialized anatomy ultrasound at 18-20 weeks [] echocardiogram at 20-22 weeks [] Serial growth ultrasounds every 4 weeks starting at 24 weeks [] Twice weekly surveillance starting at 32 weeks [] insulin plan by 32 weeks [] Delivery at [id number] (36w0d - 38w6d if has vascular complications or diabetes is poorly controlled) Assessment & Plan (08/29/2024 12:04 PM CDT): History: T1DM w/ gastroparesis. Previously used reglan for gastroparesis, currently well controlled. Follows with GI. Followed by [facility] Endocrinology, however switching to an Construction Project Engineer in [place], [place]. Diagnosed age: [age] years old History of DKA? yes:only at time of diagnosis Pre- hemoglobin A1C: 6.8% on 08/01/24 Pre- regimen: Omnipod 5, Dexcom - been on pump for ~ 1 year Pre- pump settings: Time Basal Rate ISF ICR BG Target Insulin Duration 0000 0.8 40 10 110 2 1400 0.9 40 10 110 2 1900 1.0 40 10 110 2 Pre- TDD of insulin: 55 units Pre- weight: 142 lbs CGM/pump login Username/email: [email or web address] Password: [email or web address] Counseling 08/29/2024: is generally a state of insulin resistance, the one exception being late first trimester when relatively higher levels of estrogen may enhance insulin sensitivity and increase the maternal hypoglycemia, especially when associated with nausea and vomiting. As such, insulin requirements will likely change during and frequent monitoring is required throughout . This close monitoring, in combination with diabetic education, exercise, and diet control, is recommended to achieve optimal glycemic control. We reviewed that goal blood glucose values are generally a fasting or premeal glucose of 95 mg/dL or less and a 1- hour postprandial glucose of 140 mg/dL or less. We recommend checking blood sugar fasting, before each meal, and 1 hour after eating. If a continuous glucose monitor is worn the goal glucose control is a Time in Range (TIR, 70-140 mg/dL) of 70% or greater (as well as a Time Above Range >140 mg/dL <25%, Time Below Range <4% and a very low TBR 1%). The patient should also check urine ketones when their glucose level exceeds 200 mg/dL and should have glucagon available in case of hypoglycemic episodes. We also reviewed the increased maternal and risks associated with type 1 diabetes in . We discussed that major congenital anomalies (cardiac, neurologic, and skeletal) are the leading cause of mortality in pregnancies complicated by diabetes and is directly related to hemoglobin A1C values. A HgbA1c level of 10% is associated with a ~10% anomaly rate, and a HgbA1c of 13% is associated with a ~20% anomaly rate. A starting HgbA1c of 6.8% is associated with a 5.2% anomaly rate and a 8% risk of miscarriage. Other risks include large for gestational age or small for gestational age infants, delivery, and stillbirth. There is also a 1 in 25 risk that a child of a mother with T1DM will develop T1DM, however diagnostic testing is not available. Maternal risks discussed include exacerbation of diabetes-related complications (particularly retinopathy and nephropathy), hypertensive disorders of , shoulder dystocia, and need for delivery. We also discussed that outcomes are best with optimal glycemic control. Lastly, we discussed that insulin drip will likely be required in labor. We discussed that a first trimester anatomic survey, second trimester specialized anatomic survey, serial growth ultrasounds, and surveillance twice weekly starting at 32 weeks gestation are recommended. We discussed that a echocardiogram is recommended in the second trimester given the increased risk of anomalies in T1DM. We reviewed that an estimated weight >4500 g at the time of delivery would be an indication for a delivery. Plan - Current regimen: 08/29/24 Time Basal Rate ISF ICR BG Target Insulin Duration 0000 0.8 40 10 110 2 1400 0.9 40 10 110 2 1900 1.0 40 10 110 2 08/29/24 - discussed appropriate bolus timing. She usually is uncertain about if she will finish a meal so typically boluses mid-way through her meal. Advised to give 1/2 of bolus 10-15 min prior to meal and remainder during meal if she plans to finish the meal. No changes to insulin settings today. Backup insulin plan: need to verify next visit - Physician adjusting insulin dosage: MFM [] Recommend weekly review of BG/insulin data to adjust insulin dosing [] Diabetes education - referral ordered [x] Glucagon prescribed - already has this [x] Referral to ophthalmology for comprehensive eye exam - up to date 10/2023 [] Baseline CMP, UPC, TSH - needs with primary OB [] HgbA1c qTrimester [x] 1st T: 6.8% - 08/01/24 [] 2nd T: [] 3rd T: [] Low dose ASA starting at 12 weeks - discussed [] Baseline EKG, consider maternal ECHO (if long standing disease, other comorbidities) needs with primary OB [] 1st trimester anatomy US - to be ordered next visit [] Specialized anatomy ultrasound at 18-20 weeks [] echocardiogram at 20-22 weeks [] Serial growth ultrasounds every 4 weeks starting at 24 weeks [] Twice weekly surveillance starting at 32 weeks [] insulin plan by 32 weeks [] Delivery at [id number] (36w0d - 38w6d if has vascular complications or diabetes is poorly controlled) Depression affecting 08/29/2024 Overview (08/29/2024): History of anxiety/depression Stopped Wellbutrin when she found out about , interested to restart this medication Counseling 08/29/2024: Depression affects 5-6% of the population and is considered to have multifactorial inheritance, with genetic and environmental causes. Generally, the risk of worsening depression in is dependent on control prior to . Regular follow-up with a mental health provider is recommended throughout and . Management of depression during focuses on optimizing maternal well being, as untreated or suboptimally treated depression has been associated with increased risks of , preeclampsia, growth abnormalities, and maternal self-harm. We reviewed that worsening depression may occur during or in the period, and in rare cases can lead to psychosis and/or suicide ideation. Wellbutrin: No specific congenital anomalies have been associated with bupropion. Early case-control studies suggested an increase risk of congenital heart defects but this has not been corroborated in other studies. No adverse effects have been reported for use in and . Bupropion is excreted into breast milk. Current regimen: wellbutrin 300mg daily, plans to restart Plan: [] Continue above medication regimen [] Consider baseline EPDS [] Monitor mood throughout and period Assessment & Plan (08/29/2024 12:08 PM CDT): History of anxiety/depression Stopped Wellbutrin when she found out about , interested to restart this medication Counseling 08/29/2024: Depression affects 5-6% of the population and is considered to have multifactorial inheritance, with genetic and environmental causes. Generally, the risk of worsening depression in is dependent on control prior to . Regular follow-up with a mental health provider is recommended throughout and . Management of depression during focuses on optimizing maternal well being, as untreated or suboptimally treated depression has been associated with increased risks of , preeclampsia, growth abnormalities, and maternal self-harm. We reviewed that worsening depression may occur during or in the period, and in rare cases can lead to psychosis and/or suicide ideation. Wellbutrin: No specific congenital anomalies have been associated with bupropion. Early case-control studies suggested an increase risk of congenital heart defects but this has not been corroborated in other studies. No adverse effects have been reported for use in and . Bupropion is excreted into breast milk. Current regimen: wellbutrin 300mg daily, plans to restart Plan: [] Continue above medication regimen [] Consider baseline EPDS [] Monitor mood throughout and period Supervision of high risk in first trim tarah 08/19/2024 Overview (08/19/2024): SEROLOGIES NEEDED [] OB consult only, [] Co-management vs. [] Full M Care; [] Red Team [] Blue Team Referring Provider: LILIANA ABDULLAHI [id number] [] [employer] or Medicare Insurance [] Dating Criteria: LMP:07/08/24 DEYVI:04/14/25 [] Labs: Rh [], Ab [], Rubella [], HIV [], HepBSAg [], HepBSAb [], HepBCAb [], RPR [], Hep C [], Varicella [], GC/CT [] [] Aneuploidy Screening: [] Carrier Screening: [] Hgb electrophoresis: [] CBC/Hgb: [] Early 1hr GTT (if indicated): [] UCx: [] Pap: [] LD ASA (if indicated): [] EPDS [ ]; PNBHS referral (if indicated): 2nd Trimester [] Anatomy ultrasound: [] CBC/1hr gtt at 24-28wks: [] Rhogam at 28 wks (if Rh neg): 3rd Trimester [] CBC/HIV/RPR/T&S: [] GBS: [] GC/CT (if indicated): [] testing: Counseling [] MOD: [] Place of delivery: [] Epidural: [] Accepts Blood Products: [] Stop ASA: [] MOC: [] Method of feeding: [] Rotary Drill Operator (specifically which provider): [] PP Depression Discussed: [] PP visits scheduled: Vaccines [] Flu Shot (Oct-Jan): [] COVID vaccine: [] Tdap (27-36wks): [] RSV vaccine (32-36wks): [] PP HPV vaccine counseling (<=26 yo): Assessment & Plan (08/29/2024 12:06 PM CDT): Upcoming appt with Dr. Abdullahi. Plan to obtain PNL with primary OB. US today demonstrates low FHR. Plan for repeat US in 1 week. Precautions reviewed. Insulin pump status 11/27/2023 Assessment & Plan (08/01/2024 1:11 PM CDT): pump setting changes: -add 7p 1.0 units/hr -change AIT from 4 to 2 hours. Current medications: Humalog via Omnipod 5 insulin pump BR 12a 0.8, 2p 0.9, 70 1.0 CR 10 CF 40 Target 110 AIT 2 hours Assessment & Plan (11/27/2023 3:47 PM CDT): pump setting changes: -increase 2p 0.8 to 0.9 units/hr Current medications: Humalog via Omnipod 5 insulin pump BR 12a 0.8, 2p 0.9 CR 10 CF 40 Target 110 AIT 4 hours Keep a written copy of your current insulin insulin pump settings. Be sure that you have a basal insulin at home in case there is a problem with your insulin pump requiring removal. Basal insulin choices could include Lantus, Levemir, Basaglar, Toujeo or Tresiba. Call our office for specific instructions on how much to take in case of a pump issue. My insulin pump total daily basal amount is 47 units. My insulin to carb ratio for meals is 1 unit for every 10 grams of carbs. My sensitivity is 1 unit for every 40 points above 110. My target is 110 mg/dl. Insulin pump issues can include 1) a bad infusion site, 2) a malfunctioning pump or 3) a bottle of insulin that has or is not working properly. If you bolus for a high blood sugar, be sure to check your sugar again in 30 minutes to 1 hour. If the blood sugar is not coming down or is continuing to rise, you need to remove your pump or pod from the current site and change to a new site. Check your blood sugar again in one hour. If it is still not lower or continuing to rise, remove the pump, open a new bottle of insulin and use your current insulin to carb ratio and correction scale using a pen/syringe. Always keep a copy of your insulin pump current settings available. Have the 800 phone number for your insulin pump customer service line available so that you can contact the personal financial representative to trouble shoot any issues. When you insert a new infusion set, always check your blood sugars 1 to 2 hours after to be sure that you are receiving you insulin and that your sugars are not going up. Therefore we do not recommend that you change out your infusion site or set at bedtime. Have long acting , basal insulin ( e.g. Lantus, Levemir, NPH) and insulin syringes as back up in case of pump failure. If you have to take your insulin pump off for more than 12 hours, start taking basal insulin every 24 h (take 80 % of the 24 hour insulin delivered to you via insulin pump as calculated based on your basal rates) and inject meal time insulin by injections, calculating the same way you do with your pump bolus (according to carb intake and blood sugar readings). Strep pharyngitis 02/09/2023 Assessment & Plan (02/11/2023 9:59 AM FINE GRADER): Rapid strep positive at OSH from 02/07, pt had been having sore throat symptoms that persist. She had been prescribe amoxicillin but unable to tolerate any po as above - Currently on ampicillin IV for now, plan for transition back to amoxicillin when can tolerate PO for 10 day course Hyperglycemia 01/05/2023 Dehydration 01/05/2023 Gastroparesis 01/05/2023 Assessment & Plan (04/14/2023 9:48 AM FINE GRADER): Patient was admitted to the hospital December 2022 and found to be in DKA, GI was consulted for abdominal pain, nausea, and vomiting. Patient was using marijuana. EGD showed excessive gastric fluid and gastritis, pathology was unremarkable. Gastric emptying study February 2023 with delayed gastric emptying. Reglan helped in the past. No marijuana since 12/2022. Denies any nausea or vomiting or any other complaints. Taking Reglan 4 times a day until a few days ago when she ran out. -discussed long-term side effects of Reglan including tardive dyskinesia had permanent facial paralysis; also discussed my recommendation to stop Reglan and use Zofran p.r.n., she voiced understanding and agreed with plan -Zofran refilled -discussed gastroparesis diet including 6 meals per day -continue to avoid marijuana -tight control of glucose Abdominal pain 01/05/2023 Assessment & Plan (02/12/2023 11:36 AM FINE GRADER): PT presenting with ~3-4 day of severe epigastric abdominal pain with intractable nausea and vomiting. Unable to tolerate any PO during this time period. Had admission with similar symptoms 1 month ago at [facility], treated for suspected gastroparesis with reglan, PPI, anti emetics with improvement. She had an EGD at the time which had some evidence of delayed gastric emptying. - Has OSH GI appt 02/24/23 - of note had hyperglycemia and elevated BHB and mild gap on presentation suspect component of DKA contributing Unclear etiology; initially deemed related to gastroparesis? Lipase normal less likely acute pancreatitis; not pyelonephritis given no associated symptoms; non-surgical abdomen based on history and exam; hematuria noted on UA but she is currently on her menstrual period. CT abdomen 02/07 showing no abnormalities Denies mood changes - Continue reglan PO as tolerated, PPI IV BID for now, ondansetron PRN. Discontinue compazine prn (as patient is already on metoclopramide; and patient reported ?restlessness, needing to walk around the floor often. To avoid potential EPS) - Advance diet as tolerated, change to regular diet today - Tylenol and toradol for pain, will avoid opiates as possible Intractable nausea and vomiting 06/20/2021 Starvation ketoacidosis 05/11/2021 Chronic bilateral thoracic back pain 04/13/2021 Arthralgia 04/13/2021 Type 1 diabetes mellitus without complication Overview (05/04/2022): Dx 02/07/21 - + DONN and IA-2 antibodies On multiple daily injections (with carb counting) and monitored by Dexcom. date result TSH 03/26/21 1.781 TTG IgA 02/07/21 <2 BP 03/31/22 118/72 LDL Ur microalbumin/cr Eye exam Foot exam One hospitalization since diagnosis, 05/10/21 admitted for [facility] with starvation ketosis. Last Assessment & Plan: Assessment: Eleni is an 20 y/o female presenting in [...] concerns - DARIN - Vital signs 5x/day Assessment & Plan (02/12/2023 11:37 AM FINE GRADER): T1DM, hx of DKA episodes including last month at [facility]. Last A1c 6.9 1 month ago. Current regimen is lantus 38 units nightly, carb counting for mealtime insulin Per mother, patient has not had good PO intake since 02/06 due to abdominal pain and nausea/vomiting On admission, noted to have elevated BHB and mild gap a few days ago, suspect mild DKA may have contributed to presentation - Continue NS, insulin at lower dose given very poor intake, titrate as needed - Management of abdominal pain, nausea/vomiting as described elsewhere DM (diabetes mellitus) Assessment & Plan (08/01/2024 1:23 PM CDT): Chronic problem. A1c improved from 7.2% 03/19/24 to now 6.8%. still doing well on pump (started 10/2023). Running high 7p-2a. pump setting changes: -add 7p 1.0 units/hr -change AIT from 4 to 2 hours. Current medications: Humalog via Omnipod 5 insulin pump BR 12a 0.8, 2p 0.9, 7p 1.0 CR 10 CF 40 Target 110 AIT 2 hours DM eye exam 10/2023 Dr Barbara Stout; letter sent to get copy of report. Will update labs. Verified that she uses mychart. Aware to check results/results letter in [employer]. Will contact by phone if needed. Discussed with Eleni Guevara: Strive for regular exercise (30min most days) and diet (get at least 4-5 servings of fruit and veggies daily, avoid processed foods, increase lean protein intake and decrease carb portions as well as fruit juices, regular soda & desserts). Watch carbs and simple sugars. Check the blood sugar: Dexcom G6. Check the feet daily for skin breakdown and infection. Assessment & Plan (11/27/2023 3:49 PM CDT): Chronic problem. A1c improved from 7.7% 09/14/23 to now 7.2%. Doing well with insulin pump. Troubleshooting hyperglycemia while on pump therapy reviewed. Importance of rotating sites discussed. Insulin pump settings reviewed and adjusted. pump setting changes: -increase 2p 0.8 to 0.9 units/hr Current medications: Humalog via Omnipod 5 insulin pump BR 12a 0.8, 2p 0.9 CR 10 CF 40 Target 110 AIT 4 hours DM eye exam 10/2023 Dr Barbara Stout; letter sent to get copy of report. Will update labs. Verified that she uses mychart. Aware to check results/results letter in [employer]. Will contact by phone if needed. Discussed with Eleni Guevara: Strive for regular exercise (30min most days) and diet (get at least 4-5 servings of fruit and veggies daily, avoid processed foods, increase lean protein intake and decrease carb portions as well as fruit juices, regular soda & desserts). Watch carbs and simple sugars. Check the blood sugar: Dexcom G6. Check the feet daily for skin breakdown and infection. Keep a written copy of your current insulin insulin pump settings. Be sure that you have a basal insulin at home in case there is a problem with your insulin pump requiring removal. Basal insulin choices could include Lantus, Levemir, Basaglar, Toujeo or Tresiba. Call our office for specific instructions on how much to take in case of a pump issue. My insulin pump total daily basal amount is 47 units. My insulin to carb ratio for meals is 1 unit for every 10 grams of carbs. My sensitivity is 1 unit for every 40 points above 110. My target is 110 mg/dl. Insulin pump issues can include 1) a bad infusion site, 2) a malfunctioning pump or 3) a bottle of insulin that has or is not working properly. If you bolus for a high blood sugar, be sure to check your sugar again in 30 minutes to 1 hour. If the blood sugar is not coming down or is continuing to rise, you need to remove your pump or pod from the current site and change to a new site. Check your blood sugar again in one hour. If it is still not lower or continuing to rise, remove the pump, open a new bottle of insulin and use your current insulin to carb ratio and correction scale using a pen/syringe. Always keep a copy of your insulin pump current settings available. Have the 800 phone number for your insulin pump customer service line available so that you can contact the personal financial representative to trouble shoot any issues. When you insert a new infusion set, always check your blood sugars 1 to 2 hours after to be sure that you are receiving you insulin and that your sugars are not going up. Therefore we do not recommend that you change out your infusion site or set at bedtime. Have long acting , basal insulin ( e.g. Lantus, Levemir, NPH) and insulin syringes as back up in case of pump failure. If you have to take your insulin pump off for more than 12 hours, start taking basal insulin every 24 h (take 80 % of the 24 hour insulin delivered to you via insulin pump as calculated based on your basal rates) and inject meal time insulin by injections, calculating the same way you do with your pump bolus (according to carb intake and blood sugar readings). Assessment & Plan (09/14/2023 10:47 AM CDT): Chronic, with A1c not at goal but seems to be improved Importance of diet and exercise was discussed Continue with Lantus 28 units HS and Humalog 1 unit per 5 g of carbs with a correction factor of 50 over 150 Treatment and prevention of hypoglycemia was discussed Use of an insulin pump also was discussed and she is interested Prescription for Omnipod intro kit was sent If it gets approved, will scheduled for training Gastritis without bleeding Resolved Problems Problem Noted Date Diagnosed Date Resolved Date Type 1 diabetes mellitus wit h hypoglycemia and without coma 03/19/2024 08/01/2024 Encounters Date Type Department Care Team Description 09/06/[address] [facility] [address] [place] [id number] Stephanie Ricardo MD glycemic control meeting 09/05/2024 3:30 PM CDT Ancillary Procedure [facility] [address] [place] [address] [address] [place] [address] Type 1 diabetes mellitus without complication (HCC); Supervision of high risk in first trimester 08/30/2024 Telephone [facility] [address] [place] [id number] Nupur Jackson Scheduling Appointments (//) 08/30/2024 Orders Only [facility] Maternal- Medicine [address] [place] [address] 7th [address] [place] [address] Khushbu Costa RN Type 1 diabetes mellitus affecting in first trimester, antepartum (Primary Dx); Supervision of high risk in first trimester 08/29/2024 10:00 AM CDT Office Visit [facility] [address] [place], [place] [id number] [place] [address] Supervision of high risk in first trimester (Primary Dx); Type 1 diabetes mellitus without complication (HCC); Type 1 diabetes mellitus affecting in first trimester, antepartum; Depression affecting 08/29/2024 9:30 AM CDT Ancillary Procedure [facility] [address] [place] [address] [address] [place] [address] Supervision of high-risk , unspecified trimester 08/15/2024 Telephone [facility]- Medicine [address] [place] [address] 7th [address] [place] [address] Monika Antony, ELIAZAR Scheduling US/OBC 08/15/2024 Telephone [facility] [address] [place] [phone] Liliana Abdullahi, Patient issue/concern 08/01/2024 1:00 PM CDT Office Visit [facility] [place] [address] Yelitza Viera, TYREL Type 1 diabetes mellitus with hyperglycemia (HCC) (Primary Dx); Insulin pump status from Last 3 Months Immunizations Immunization Administration Dates Next Due DTaP 04/23/2003,02/24/2003 DTaP / IPV 09/08/2008 DTaP, Unspecified 07/22/2004,09/30/2003 HPV9 04/29/2015,12/22/2014,10/21/2014 Hep A, Ped Unspecified 04/28/2006 Hep A, Pediatric 09/08/2008 Hep B, Adolescent or Pediatric 4,04/23/2003,02/24/2003,12/21 HiB 07/22/2004, 4,04/23/2003,02/24 IPV 09/30/2003,04/23/2003,02/24/2003 Influenza, Quadrivalent, Spl it, Preservative Free, Intramuscular 02/09/2023,12/22/2014 Influenza, Trivalent, Preser vative Free, Intramuscular 11/13/2023 Influenza, Unspecified 11/02/2011 MMR 09/08/2008,03/11/2004 Meningococcal B, OMV (Bexsero) 09/17/2020 Meningococcal MCV4P (Menactra) 09/17/2020,2014 Pneumococcal Conjugate 7-Valent 09/30/2003,04/22,02/24/2003 Pneumococcal Conjugate PCV 13 07/22/2004 Tdap 10/21/2014 Varicella 09/08/2008,03/11/2004 Medical History Medical History Date Comments Asthma as an infant bu t it pretty much went away, we haven't had issues with it for years. DM (diabetes mellitus) neuropath y Anxiety and depression PTSD (post-traumatic stress disorder) Social History Tobacco Use Types Packs/Day Years Used Date Smoking Tobacco: Never Smokeless Tobacco: Never Alcohol Use Standard Drinks/Week Comments Never 0 (1 standard drink = 0.6 oz pur e alcohol) [facility] Utilities Answer Date Recorded In the past 12 months has th e electric, gas, oil, or water company threatened to shut off services in your home? No 01/06/2023 Social Connection and Isolation Panel Answer Date Recorded In a typical week, how many times do you talk on the phone with family, friends, or neighbors? More than three times a week 01/06/2023 How often do you get togethe r with friends or relatives? More than three times a week 01/06/2023 How often do you attend chur ch or bahai services? Never 01/06/2023 Do you belong to any clubs o r organizations such as gnosticism groups, unions, fraternal or athletic groups, or school groups? No 01/06/2023 How often do you attend meet ings of the clubs or organizations you belong to? Never 01/06/2023 Are you , , di vorced, , never , or living with a partner? Never 01/06/2023 AUDIT-C Answer Date Recorded Frequency of Alcohol Consumption Not on file 08/29/2024 Q2: How many drinks containi ng alcohol do you have on a typical day when you are drinking? Patient does not drink Frequency of Binge Drinking Not on file 08/13 Overall Financial Resource Strain (CARDIA) Answe r Date Recorded How hard is it for you to pa y for the very basics like food, housing, medical care, and heating? Not hard at all 01/06/2023 PHQ-2 Answer Date Recorded PHQ-2 Total Score (If total score is 3 or more points, staff should administer the PHQ-9) 0 09/14/2023 Hunger Vital Sign Answer Date Recorded Within the past 12 months, y ou worried that your food would run out before you got the money to buy more. Never true 01/07/20 23 Within the past 12 months, t he food you bought just didn't last and you didn't have money to get more. Never true 01/06/2023 PRAPARE - Transportation Answer Date Re corded In the past 12 months, has l ack of transportation kept you from medical appointments or from getting medications? No 12/15 In the past 12 months, has l ack of transportation kept you from meetings, work, or from getting things needed for daily living? No 01/06/2023 Housing Stability Vital Sign Answer Anthony e Recorded In the last 12 months, was t here a time when you were not able to pay the mortgage or rent on time? No 01/06/2023 In the last 12 months, how many places have you lived? 1 01/06/2023 In the last 12 months, was t here a time when you did not have a steady place to sleep or slept in a longterm (including now)? No 01/06/2023 Personal Safety Answer Date Recorded Have you ever been in or are you currently in a harmful physical or emotional relationship or is someone making you feel afraid or unsafe? Denies 02/09/2023 Comments No Sex and Gender Information Value Date Recorded Sex Assigned at Not on file Legal Sex Female 7:23 PM [employer] Gender Identity Female 11/08/2023 12:21 PM CDT Sexual Orientation Straight 11/08/2023 12 :21 PM CDT Obstetrics History Para Term AB IAB SAB Ectopic Multiple Livin g Live Births 2 0 0 0 2 0 2 0 0 0 0 Date Outcome GA Total Labor Labor/2nd/3rd Weight Sex Type Anes PTL Keysha A1 A5 Name Clin SAB 025 SAB 7w0d Summary Episode Dates Number of Fetuses Estimated Date of Delivery 08/19/2024 - Present (10/18/2024) 04/25/2025 (set by Johny Nina MD on 08/29/2024 based on Ultrasound on 08/29/2024) Dating Summary Based On DEYVI GA Diff Last Menstrual Period on 07/02/2024 04/08/2025 +2w3d Ultrasound on 08/29/2024 04/25/2025 Working GA:5w6d Vitals Pregravid Weight Height TWG (As of 10/18/2024) Pregrav id BMI 152.4 cm (5') Notes Progress Notes - Orders Only - 08/30/2024 - GA:6w0d 08/30/2024 - 6w0d - St hyun Costa RN DE referral placed Progress Notes - Office Visi t - 08/29/2024 - GA:5w6d 08/29/2024 - 5w6d - Liliana Nina MD Images from the original note were not included. Maternal Medicine Consult Note Reason for Consult: Type 1 DM Requesting Provider: Liliana Abdullahi DO Dear Dr. Abdullahi, We had the pleasure of seeing your patient Eleni Guevara in our office today. As you know, she is a 23 y.o. at 5w6d by 1st trimester Ultrasound here today for a consult regarding Type 1 DM with gastroparesis. Her is also complicated by anxiety/depression, h/o childhood asthma. Today she is doing well, she reports no complaints. Denies vaginal bleeding or cramping. No N/V. Denies hypoglycemia. She usually is uncertain about if she will finish a meal so typically boluses mid-way through her meal. She is interested in diabetes education, has not seen a complaint inspector in 3 years. Past Medical History: Diagnosis Date Anxiety and depression Asthma as an infant but it pretty much went away, we haven't had issues with it for years. DM (diabetes mellitus) (HCC) neuropathy PTSD (post-traumatic stress disorder) History reviewed. No pertinent surgical history. Past Gynecologic History: Prior STIs: denies History of abnormal pap: n/a due to age Last pap smear: n/a due to age Patient's last menstrual period was 07/02/2024. Denies history of uterine anomalies or fibroids OB History Para Term AB Living 2 0 0 0 1 0 SAB IAB Ectopic Multiple Live Births 1 0 0 0 0 # Outcome Date GA Lbr Declan/2nd Weight Sex Type Anes PTL Lv 2 Current 1 SAB Current Outpatient Medications Medication Sig Dispense Refill Alcohol Prep Pads pads, medicated Aviane 0.1-20 mg-mcg per tablet TAKE 1 TABLET BY MOUTH ONCE DAILY DIRECTED FOR 28 DAYS buPROPion XL (WELLBUTRIN XL) 300 mg 24 hr tablet Take 1 tablet (300 mg total) by mouth every morning Contour Plus Blue Meter misc USE TO CHECK BLOOD SUGARS THREE TIMES DAILY Dexcom G6 Powdered Sugar Pulverizer Operator misc as directed Dexcom G6 Sensor device Use for BG monitoring, change every 10 days 9 each 3 Dexcom G6 Transmitter device USE DIRECTED FOR 90 DAYS glucagon (Baqsimi) 3 mg/actuation spray,non-aerosol Administer 1 spray (3 mg total) into one nostril as needed (For hypoglycemia) 3 each 11 hydrOXYzine (ATARAX) 10 mg tablet Take 1 tablet (10 mg total) by mouth 3 (three) times a day as needed insulin lispro (HumaLOG) 100 unit/mL vial for injection Insulin pump to inject under skin. Up to 70 units/day. 50 mL 3 insulin lispro (HumaLOG, ADMELOG) 100 unit/mL pen for injection Take 1 unit per 5 grams of carbs and add 1 for every 50 points sugar over 150 up to 30 units daily 15 mL 3 insulin formula technician cart,aut,G6/7,cntr (Omnipod 5 G6-G7 Intro Kt,Gen5,) cartridge Use for insulin administration 1 each 0 insulin pump cart,automated,BT (Omnipod 5 G6 Pods, Gen 5,) cartridge Use for insulin administration 30 each 2 LANTUS 100 unit/mL (3 mL) pen for injection Inject 30 Units under the skin nightly 15 mL 3 Microlet Lancet misc USE DIRECTED THREE TIMES DAILY nitrofurantoin monohydrate (MACROBID) 100 mg capsule TAKE 1 CAPSULE BY MOUTH TWICE DAILY FOR 7 DAYS Omnipod 5 G6 Intro Kit, Gen 5, cartridge USE FOR INSULIN ADMINISTRATION 1 each 0 Omnipod 5 G6-G7 Pods, Gen 5, cartridge USE DIRECTED WITH INSULIN ADMINISTRATION 30 each 0 ondansetron ODT (ZOFRAN-ODT) 4 mg disintegrating tablet DISSOLVE 1 TABLET IN MOUTH EVERY 8 HOURS NEEDED FOR NAUSEA AND VOMITING 30 tablet 0 OneTouch Delica Plus Lancet 33 gauge misc TEST BLOOD SUGAR 5-7 TIMES DAILY OneTouch Verio test strips strip Test blood sugar 1-2 times daily while on Dexcom 100 each 1 pen needle, diabetic (Pen Needle) 31 gauge x 3/16 needle Inject 1 each as directed as directed traMADoL (ULTRAM) 50 mg tablet Take 1-2 tablets (50-100 mg total) by mouth every 6 (six) hours as needed No current facility-administered medications for this visit. Family History: No family history on file. Neural tube defects: No Down syndrome or other chromosomal anomalies: No Hemophilia, sickle cell, bleeding/clotting disorder: Yes, mother with lupus and clotting disorder. Pt reports she was tested for this disorder at age 20 and was negative. 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 Ultrasound 08/29/2024: 5w 6d IUP for confirmation of viability and dating - A single intrauterine was seen. Cardiac motion was observed with FHR 80 bpm. The CRL is inconsistent with reported dating criteria. Viability is uncertain. The adnexa appeared normal bilaterally with right corpus luteum present. Please see the separate report for full details Assessment: Ms. Eleni Guevara is a regulo 23 y.o. at 5w6d here today for a consult regarding: Recommendations: Type 1 diabetes mellitus affecting in first trimester, antepartum History: T1DM w/ gastroparesis. Previously used reglan for gastroparesis, currently well controlled. Follows with GI. Followed by [facility] Endocrinology, however switching to an Construction Project Engineer in [place], [place]. Diagnosed age: [age] years old History of DKA? yes:only at time of diagnosis Pre- hemoglobin A1C: 6.8% on 08/01/24 Pre- regimen: Omnipod 5, Dexcom - been on pump for ~ 1 year Pre- pump settings: Time Basal Rate ISF ICR BG Target Insulin Duration 0000 0.8 40 10 110 2 1400 0.9 40 10 110 2 1900 1.0 40 10 110 2 Pre- TDD of insulin: 55 units Pre- weight: 142 lbs CGM/pump login Username/email: [email or web address] Counseling 08/29/2024: is generally a state of insulin resistance, the one exception being late first trimester when relatively higher levels of estrogen may enhance insulin sensitivity and increase the maternal hypoglycemia, especially when associated with nausea and vomiting. As such, insulin requirements will likely change during and frequent monitoring is required throughout . This close monitoring, in combination with diabetic education, exercise, and diet control, is recommended to achieve optimal glycemic control. We reviewed that goal blood glucose values are generally a fasting or premeal glucose of 95 mg/dL or less and a 1- hour postprandial glucose of 140 mg/dL or less. We recommend checking blood sugar fasting, before each meal, and 1 hour after eating. If a continuous glucose monitor is worn the goal glucose control is a Time in Range (TIR, 70-140 mg/dL) of 70% or greater (as well as a Time Above Range >140 mg/dL <25%, Time Below Range <4% and a very low TBR 1%). The patient should also check urine ketones when their glucose level exceeds 200 mg/dL and should have glucagon available in case of hypoglycemic episodes. We also reviewed the increased maternal and risks associated with type 1 diabetes in . We discussed that major congenital anomalies (cardiac, neurologic, and skeletal) are the leading cause of mortality in pregnancies complicated by diabetes and is directly related to hemoglobin A1C values. A HgbA1c level of 10% is associated with a ~10% anomaly rate, and a HgbA1c of 13% is associated with a ~20% anomaly rate. A starting HgbA1c of 6.8% is associated with a 5.2% anomaly rate and a 8% risk of miscarriage. Other risks include large for gestational age or small for gestational age infants, delivery, and stillbirth. There is also a 1 in 25 risk that a child of a mother with T1DM will develop T1DM, however diagnostic testing is not available. Maternal risks discussed include exacerbation of diabetes-related complications (particularly retinopathy and nephropathy), hypertensive disorders of , shoulder dystocia, and need for delivery. We also discussed that outcomes are best with optimal glycemic control. Lastly, we discussed that insulin drip will likely be required in labor. We discussed that a first trimester anatomic survey, second trimester specialized anatomic survey, serial growth ultrasounds, and surveillance twice weekly starting at 32 weeks gestation are recommended. We discussed that a echocardiogram is recommended in the second trimester given the increased risk of anomalies in T1DM. We reviewed that an estimated weight >4500 g at the time of delivery would be an indication for a delivery. Plan - Current regimen: 08/29/24 Time Basal Rate ISF ICR BG Target Insulin Duration 0000 0.8 40 10 110 2 1400 0.9 40 10 110 2 1900 1.0 40 10 110 2 08/29/24 - discussed appropriate bolus timing. She usually is uncertain about if she will finish a meal so typically boluses mid-way through her meal. Advised to give 1/2 of bolus 10-15 min prior to meal and remainder during meal if she plans to finish the meal. No changes to insulin settings today. Backup insulin plan: need to verify next visit - Physician adjusting insulin dosage: MFM [] Recommend weekly review of BG/insulin data to adjust insulin dosing [] Diabetes education - referral ordered [x] Glucagon prescribed - already has this [x] Referral to ophthalmology for comprehensive eye exam - up to date 10/2023 [] Baseline CMP, UPC, TSH - needs with primary OB [] HgbA1c qTrimester [x] 1st T: 6.8% - 08/01/24 [] 2nd T: [] 3rd T: [] Low dose ASA starting at 12 weeks - discussed [] Baseline EKG, consider maternal ECHO (if long standing disease, other comorbidities) needs with primary OB [] 1st trimester anatomy US - to be ordered next visit [] Specialized anatomy ultrasound at 18-20 weeks [] echocardiogram at 20-22 weeks [] Serial growth ultrasounds every 4 weeks starting at 24 weeks [] Twice weekly surveillance starting at 32 weeks [] insulin plan by 32 weeks [] Delivery at [id number] (36w0d - 38w6d if has vascular complications or diabetes is poorly controlled) Supervision of high risk in first trimester Upcoming appt with Dr. Abdullahi. Plan to obtain PNL with primary OB. US today demonstrates low FHR. Plan for repeat US in 1 week. Precautions reviewed. Depression affecting History of anxiety/depression Stopped Wellbutrin when she found out about , interested to restart this medication Counseling 08/29/2024: Depression affects 5-6% of the population and is considered to have multifactorial inheritance, with genetic and environmental causes. Generally, the risk of worsening depression in is dependent on control prior to . Regular follow-up with a mental health provider is recommended throughout and . Management of depression during focuses on optimizing maternal well being, as untreated or suboptimally treated depression has been associated with increased risks of , preeclampsia, growth abnormalities, and maternal self-harm. We reviewed that worsening depression may occur during or in the period, and in rare cases can lead to psychosis and/or suicide ideation. Wellbutrin: No specific congenital anomalies have been associated with bupropion. Early case-control studies suggested an increase risk of congenital heart defects but this has not been corroborated in other studies. No adverse effects have been reported for use in and . Bupropion is excreted into breast milk. Current regimen: wellbutrin 300mg daily, plans to restart Plan: [] Continue above medication regimen [] Consider baseline EPDS [] Monitor mood throughout and period We have scheduled her to return in 4 weeks for MFM visit. For weekly insulin pump review. Thank you for the opportunity to be involved in the care of your patient. Should you have any further questions or concerns, please do not hesitate to call us. Liliana Nina MD Maternal Medicine 08/29/2024 My total encounter time on 08/29/2024 was 60 minutes which was spent in the activities documented in the note. This includes time spent prior to the visit and after the visit in direct care of the patient. This time does not include time spent in any separately reportable services. Progress Notes - Abstract - 08/19/2024 - GA:4w3d 08/19/2024 - 4w3d - Angy Florentino RMA She is very early in her and haven't gotten her lab work done yet. Last Filed Vital Signs Vital Sign Reading Time Taken Comments Blood Pressure 120/80 08/29/2024 10:03 AM CDT Pulse 105 08/29/2024 10:03 AM CDT Temperature 36.2 C (97.2 F) 02/12/2023 9:45 AM FINE GRADER Respiratory Rate 14 11/27/2023 3:08 PM CDT Oxygen Saturation 96% 08/29/2024 10:03 AM CDT Inhaled Oxygen Concentration - - Weight 64.6 kg (142 lb 6.7 oz) 08/29/2024 10:03 AM CDT Height 152.4 cm (5') 08/29/2024 10:03 AM CDT Body Mass Index 27.81 08/29/2024 10:03 AM CDT Plan of Treatment Health Maintenance Due Date Last Done Comments Cervical Cancer Screening 2002 Chlamydia and Gonorrhea (GC/ CT) Screening 2002 Hepatitis C Screening 2002 Pneumococcal vaccine <65 (1 of 1 - PPSV23, PCV20, or PCV21) 2008 07/22/2004, 09/30/2003, 04/23/2003, Additional history exists Dilated Eye Exam 2012 Regular Well Visit/Exam 18-64 2020 Meningococcal B Vaccine (2 o f 2 - Bexsero SCDM 2-dose series) 03/20/2021 09/17/2020 TSH Level 04/26/2024 04/27/2023, 03/26/2021 Depression Screening 09/13/2024 09/14/2023, 05/10/2021, 05/10/2021 Influenza Vaccine (#1) 2024 , 02/09/2023, 12/22/2014, Additional history exists DTaP/Tdap/Td Vaccine (7 - Td or Tdap) 10/21/2024 10/21/2014, 09/08/2008, 07/22/2004, Additional history exists Albumin Creatinine Ratio, Urine 11/26/2024 Lipid Panel 11/26/2024 11/27/2023, 10/11/2022 eGFR 11/26/2024 11/27/2023, 01/15, 02/09/2023, Additional history exists Hemoglobin A1C 01/31/2025 08/01/2024, 02/0 05/2024, 11/27/2023, Additional history exists Foot Exam 08/01/2025 08/01/2024, 11/27/2023 Hepatitis B Screening Completed 09/30/2003 , 04/23/2003, 02/24/2003, Additional history exists Varicella Vaccines Completed 09/08/2008, 03/11/2004 HPV Vaccines Completed 04/29/2015, 11/0 10/2014, 10/21/2014 Meningococcal Vaccine Completed 09/17/2020, 015 Procedures Procedure Name Priority Date/Time Associated Diagnosis Comments US OB LIMITED Schedule Routine, Read Routine (OP Routine) 09/05/2024 3:06 PM CDT Type 1 diabetes mellitus without complication (HCC) Supervision of high risk in first trimester OB LIMITED Schedule Routine, Read Routine (OP Routine) 08/29/2024 9:27 AM CDT Supervision of high-risk , unspecified trimester POCT HEMOGLOBIN A1C Routine 08/01/2024 12:56 PM CDT Type 1 diabetes mellitus with hyperglycemia (HCC) POCT GLUCOSE Routine 08/01/2024 12:56 PM CDT Type 1 diabetes mellitus with hyperglycemia (HCC) EGFR Routine 11/27/2023 3:55 PM CDT Type 1 diabetes mellitus with hyperglycemia (HCC) LIPID PANEL Routine 11/27/2023 3:55 PM CDT Type 1 diabetes mellitus with hyperglycemia (HCC) ALBUMIN CREATININE RATIO, URINE Routine 11/27/2023 3:55 PM CDT Type 1 diabetes mellitus with hyperglycemia (HCC) from Last 3 Months or Most Recently Relevant to Health Maintenance Results * US Ob Limited (09/05/2024 3:06 PM CDT) Anatomical Region Laterality Modality Abdomen N/A Ultrasound 09/05/2024 3:40 PM CDT Impressions 09/05/2024 4:31 PM CDT 6w 6d IUP for confirmation of viability - A single intrauterine was seen. Cardiac motion was not observed, consistent with first trimester loss. The CRL did not increase in size over the past week. The adnexa appeared normal bilaterally with the right corpus luteum again visualized. Patient and her partner were counseled regarding the findings and brief review of options. Patient's primary OB Dr. Liliana Abdullahi was also notified by phone. Narrative Procedure Note Davina Oreilly MD - 09/05/2024 IMPRESSION: 6w 6d IUP for confirmation of viability - A single intrauterinepregnancy was seen. Cardiac motion was not observed, consistent with firsttrimester loss. The CRL did not increase in size over the pastweek. The adnexa appeared normal bilaterally with the right corpus luteumagain visualized. Patient and her partner were counseled regarding the findings and briefreview of options. Patient's primary OB Dr. Liliana Adbullahi was also notifiedby phone. Liliana Nina MD IMG OB US PROCEDURES Final Result * US Ob Limited (08/29/2024 9:27 AM CDT) Anatomical Region Laterality Modality Abdomen N/A Ultrasound 08/29/2024 9:29 AM CDT Impressions 08/29/2024 10:09 AM CDT 5w 6d IUP for confirmation of viability and dating - A single intrauterine was seen. Cardiac motion was observed with FHR 80 bpm. The CRL is inconsistent with reported dating criteria. Viability is uncertain. The adnexa appeared normal bilaterally with right corpus luteum present. Narrative Procedure Note Liliana Nina MD - 08/29/2024 IMPRESSION: 5w 6d IUP for confirmation of viability and dating - Asingle intrauterine was seen. Cardiac motion was observed withFHR 80 bpm. The CRL is inconsistent with reported dating criteria.Viability is uncertain. The adnexa appeared normal bilaterally with rightcorpus luteum present. us Liliana Abdullahi DO IMG OB US PROCEDURES Fi nal Result * (ABNORMAL) POCT hemoglobin A1c (08/01/2024 12:56 PM CDT) Hemoglobin A1C, POC 6.8(A) 4.0 - 5.6 % Blood 08/01/2024 12:5 6 PM CDT us Yelitza Viera LEAD RECOVERER POINT OF CARE TEST ORDERA BLES Final Result * (ABNORMAL) POCT glucose (08/01/2024 12:56 PM CDT) Glucose Blood, POC 123 Normal Fasting 70 - 100, Random <200 mg/dL Blood 08/01/2024 12:5 6 PM CDT us Yelitza Viera LEAD RECOVERER POINT OF CARE TEST ORDERA BLES Final Result * eGFR (11/27/2023 3:55 PM CDT) eGFR >90 >=60 mL/min/1. 73 m2 Comment: Interpretive Data Reference Interval Normal >/= 90 mL/min/1.73m2 Mildly decreased* 60 - 89 mL/min/1.73m2 Mildly to moderately decreased 45 - 59 mL/min/1.73m2 Moderately to severely decreased 30 - 44 mL/min/1.73m2 Severely decreased 15 - 29 mL/min/1.73m2 Kidney Failure < 15 mL/min/1.73m2 *Relative to young adult level Estimated glomerular filtration rate is determined by the 2020 CKD-EPI equation recommended by the National Kidney Foundation (A Unifying Approach to GFR Estimation: Recommendations of the NKF-ASK Task Force on Reassessing the Inclusion of Race in Diagnosing Kidney Disease, JASN 2020). The CKD-EPI equation should not be used for patients with unstable renal function and has not been validated in children and those over 70. Current interpretive data was last reviewed 2020. Blood 11/27/2023 3:55 PM CDT 11/27/2023 8:17 PM CDT Yelitzadanika Viera LEAD RECOVERER LAB BLOOD ORDERABLES Evangelina l Result Performing Organization Address [facility] Co de Phone Number RACQUEL [address] [address] [email or web address] [address] * Albumin Creatinine Ratio, Urine (11/27/2023 3:55 PM CDT) Albumin Ur 20.3 mg/L Comment: Interpretive Data No reference range established. Current interpretive data was last revised 2018. Creatinine Ur 245.3 mg/dL [facility] Comment: Interpretive Data No reference range established. Current interpretive data was last revised 2018. Albumin Creatinine Ratio, Ur 8 1 - 29 mg/g [facility] Urine 11/27/2023 3:55 PM CDT 11/27/2023 8:16 PM CDT Yelitza Viera LEAD RECOVERER LAB URINE ORDERABLES Evangelina l Result Performing Organization Address [facility] Co de Phone Number [facility] [address] [place] [address] * Lipid panel (11/27/2023 3:55 PM CDT) Cholesterol 160 30 - 199 mg/dL Comment: Interpretive Data Ages < or = 19 years Acceptable: <170 mg/dL Borderline high: 170-199 mg/dL High: >or= 200 mg/dL Ages > or = 20 years Desirable: <200 mg/dL Borderline high: 200-239 mg/dL High: >or= 240 mg/dL Literature References: 1. Expert Panel on Integrated Guidelines for Cardiovascular Health and Risk Reduction in Children and Adolescents. Pediatrics 2011;128:S213 2. NCEP Expert Panel. Circulation 2004;110:227 Current Interpretive Data was last revised on 2017. Triglycerides 119 <=149 mg/dL RACQUEL Comment: Interpretive Data Ages < or = 9 years Acceptable: <75 mg/dL Borderline high: 75-99 mg/dL High: >or= 100 mg/dL Ages 10 to 20 years Acceptable: <90 mg/dL Borderline high: 90-129 mg/dL High: >or= 130 mg/dL Ages > or = 20 years Desirable: <150 mg/dL Borderline high: 150-199 mg/dL High: 200-499 mg/dL Very high: >or= 499 mg/dL Literature References: 1. Expert Panel on Integrated Guidelines for Cardiovascular Health and Risk Reduction in Children and Adolescents. Pediatrics 2011;128:S213 2. NCEP Expert Panel. Circulation 2004;110:227 Current Interpretive Data was last revised on 2017. HDL 41 >=40 mg/dL [facility]ACQU[facility] RUGGIERO Comment: Interpretive Data Ages < or = 19 years Acceptable: >45 mg/dL Borderline low: 40-45 mg/dL Low: <40 mg/dL Ages > or = 20 years Desirable: >or= 60 mg/dL Low: <40 mg/dL Literature References: 1. Expert Panel on Integrated Guidelines for Cardiovascular Health and Risk Reduction in Children and Adolescents. Pediatrics 2011;128:S213 2. NCEP Expert Panel. Circulation 2004;110:227 Current Interpretive Data was last revised on 2017. LDL, calculated 97 <=129 mg/dL [facility] Comment: Interpretive Data Ages < or = 19 years Acceptable: <110 mg/dL Borderline high: 110-129 mg/dL High: >or= 130 mg/dL Ages > or = 20 years Optimal: <100 mg/dL Near optimal: 100-129 mg/dL Borderline high: 130-159 mg/dL High: >160 mg/dL Calculated using the Mccloud LDL-C estimating equation. This equation was implemented on 2023. Prior to this date LDL-C was estimated using the Friedewald equation. Literature References: 1. Expert Panel on Integrated Guidelines for Cardiovascular Health and Risk Reduction in Children and Adolescents. Pediatrics 2011;128:S213 2. NCEP Expert Panel. Circulation 2004;110:227 3. Rogers M et al. DANDY Cardiol. 2020 June 13;5(5):540-548. doi: 10.1001/jamacardio.2020.0013 Current Interpretive Data was last revised on 2023. Non-HDL Cholesterol 119 mg/dL [facility] RUGGIERO Comment: Interpretive Data Ages < or = 19 years Acceptable: <120 mg/dL Borderline high: 120-144 mg/dL High: >145 mg/dL Ages > or = 20 years When triglycerides are >200 mg/dL, Non-HDL cholesterol is a secondary target of therapy with treatment goals that are 30 mg/dL greater than the LDL cholesterol target. Literature References: 1. Expert Panel on Integrated Guidelines for Cardiovascular Health and Risk Reduction in Children and Adolescents. Pediatrics 2011;128:S213 2. NCEP Expert Panel. Circulation 2004;110:227 Current Interpretive Data was last revised on 2017. Chol/HDL ratio 4 [facility] RUGGIERO Blood 11/27/2023 3:55 PM CDT 11/27/2023 8:16 PM CDT Yelitza Viera NP LAB BLOOD ORDERABLES Evangelina meza Result RACQUEL RUGGIERO [address] [address] [facility] [place] [address] from Last 3 Months or Most Recently Relevant to Health Maintenance Insurance [facility] Advance Directives For more information, please contact: [phone] * Full Code (Latest Code Status on File) Date Activated Date Inactivated Comments 02/09/2023 6:20 PM 02/12/2023 6:58 PM * Full Code Date Activated Date Inactivated Comments 01/10/2023 10:27 AM 01/11/2023 9:13 PM * Full Code Date Activated Date Inactivated Comments 01/05/2023 5:57 PM 01/10/2023 10:27 AM * Full Code Date Activated Date Inactivated Comments 06/20/2021 10:50 AM 06/22/2021 10:36 PM * Full Code Date Activated Date Inactivated Comments 05/11/2021 6:37 PM 05/12/2021 10:10 PM Healthcare Agents on File Name Relationship Healthcare Agent Relationshi p Communication Khari Guevara Mother Health Care Agent Care Teams Charhouse Worker Relationship Specialty Start Date End Date Lluvia Gorman PA [address] [place] [address] PCP - General Physician Kitchen Supervisor 02/10/23 Dada Beckford MD [address] [place] [address] [place] [address] Consulting Physician Gastroenterology 01/11/23
--- OUTSIDE RECORDS SUMMARY | 2024-10-18 18:25 | XMS_ITS | Encounter Summary ---
Author Organization [facility] Address [address] [facility] [place] [address] Care Team Providers Care Team Truck Driver Name Role Phone Megan Golden MD Primary Care Provider [phone] Unknown, Provider Primary Care Provider Unavaila ble Megan Golden MD Primary Care Provider [phone] Lluvia Gorman PA-C Primary Care Provider + Walter Pride Primary Care Provider [phone] Encounter Details Date Type Department Care Team (Late st Contact Info) Description 04/07/2021 Telephone [facility] Pediatrics - Endocrinology [address] [place] [id number] Nadya Sosa DO [address] [place] [id number] Social History Tobacco Use Types Packs/Day Years Used Date Smoking Tobacco: Never Smokeless Tobacco: Never Alcohol Use Standard Drinks/Week Comments Never 0 (1 standard drink = 0.6 oz pur e alcohol) PHQ-2 Answer Date Recorded Patient Health Questionnaire-2 Score 2 03/29/2021 Comments Unknown Sex and Gender Information Value Date Recorded Sex Assigned at Female 10/11/2022 12:37 PM CDT Legal Sex Female 5:42 AM MICROARRAY SPECIALIST Gender Identity Female 10/11/2022 12:37 PM CDT Sexual Orientation Straight 10/11/2022 12 :37 PM CDT COVID-19 Exposure Response Date Recorded In the last month, have you been in contact with someone who was confirmed or suspected to have Coronavirus / COVID-19? No / Unsure 03/26/2021 9:17 AM MICROARRAY SPECIALIST documented as of this encounter Functional Status [...] Miscellaneous Notes * Telephone Encounter - Nadya Sosa, - 04/07/2021 7:21 AM MICROARRAY SPECIALIST DIMITRIS was negative. CRP appears not to have been run. Other results already received are as follows: A1c 7.1% Vitamin D 33.3 ng/mL (30-100 sufficient) CBC - WBC 4.91, hgb 15.2 (12-15), hct 43.5, plts 311. RDW 10.7 (11.5-14.5), %neutrophils 39.5 (45.5-73.1), %lymphocytes 44.8 (18.3-44.2), %monos11.3 (2.6-8.5) ESR 8 Na 138, K 3.9, chloride 102, bicarb 26, BUN 7 (8-21), creatinine 0.3, glucose 138, calcium 10.2, albumin 4.7, ALT 16, AST 21, alk phos 52 UA negative C3 105 (98-165) C4 18.9 (14-44) CH50 >60 U/mL (31-60) She has rheumatology appointment on 04/12/21. OARRAY SPECIALIST documented in this encounter Plan of Treatment Not on file documented as of this encounter Visit Diagnoses Not on filedocumented in this encounter Care Teams Team Truck Driver Relationship Specialty Start Date End Date Megan Golden MD [address] [place] [phone] PCP - General Pediatrics 01/31/21 06/13/21 Unknown, Provider [address] [place] [phone] PCP - General 06/17/2106/29 Megan Golden MD [address] [place] [phone] PCP - General 06/30/21 09/12/21 Lluvia Gorman PA-C [address] [place] [phone] PCP - General Physician Online Merchandising Coordinator 09/13/21 04/26/23 Walter Pride [address] [place] [phone] PCP - General 04/27/23 documented as of this encounter
--- OUTSIDE RECORDS SUMMARY | 2024-10-18 18:25 | XMS_ITS | Encounter Summary ---
Author Organization [facility] Address [address] [place] [address] Care Team Providers Care Renewals Representative Name Role Phone Walter Pride Primary Care Provider [phone] Reason for Visit * Reason Onset Date Comments MEDICATION REFILL 05/12/2023 Encounter Details Date Type Department Care Team (Late st Contact Info) Description 05/12/2023 Refill [facility] Pediatrics - Diabetes Mgmt [address] [place] [id number] Nadya Sosa, [address] [address] MEDICATION REFILL Social History Tobacco Use Types [...] PM CDT Legal Sex Female 5:42 AM WATCH INSPECTOR Gender Identity Female 10/11/2022 12:37 PM CDT Sexual Orientation Straight 10/11/2022 12 :37 PM CDT documented as of this encounter Functional Status * Is person deaf or have serious hearing difficulty? Answer Date of Assessment Author No 02/07/2021 1:00 PM WATCH INSPECTOR Monica Solis RN * Is person blind [...] encounter Miscellaneous Notes * Telephone Encounter - Kamila Cook RN - 05/12/2023 4:13 PM CDT Received fax from [employer] that Verio meter and test strips are not preferred but One Touch meter andtest strips are preferred. Will send refill request for One Touch Verio Flex meter and test strips. Last seen in clinic 04/27/2023. No pending appointment. Message sent to [employer] division sales secretary to contact family to assist with making a return to clinic appointment. documented in this encounter Plan of Treatment Not on file documented as of this encounter Visit Diagnoses Diagnosis Type 1 diabetes mellitus without complication (HCC) Type I (juvenile type) diabetes mellitus without mention of complication, not stated as uncontrolled documented in this encounter Care Teams Renewals Representative Relationship Specialty Start Date End Date Walter Pride [address] [place] [phone] PCP - General 04/27/23 documented as of this encounter
--- OUTSIDE RECORDS SUMMARY | 2024-10-18 18:25 | XMS_ITS | Encounter Summary ---
Author Organization [facility] Address [address] [facility] [place] [address] Care Team Providers Care Mental Health Program Manager Name Role Phone Megan Golden MD Primary Care Provider [phone], Provider Primary Care Provider Unavaila ble Megan Golden MD Primary Care Provider [phone] Lluvia Gorman PA-C Primary Care Provider + Walter Pride Primary Care Provider [phone] Encounter Details Date Type Department Care Team (Late st Contact Info) Description 03/22/2021 Telephone [facility] Pediatrics - Diabetes [facility] [address] [place] [address] Judy Trevino, GLASS PROCESSING WORKER-RAMP SERVICE MAN [address] [place] [phone] Social History Tobacco Use Types Packs/Day Years Used Date Smoking Tobacco: Never Smokeless Tobacco: Never Alcohol Use Standard Drinks/Week Comments Never 0 (1 standard drink = 0.6 oz pur e alcohol) PHQ-2 Answer Date Recorded Patient Health Questionnaire-2 Score 0 02/26/2021 Comments Unknown Sex and Gender Information Value Date Recorded Sex Assigned at Female 10/11/2022 12:37 PM CDT Legal Sex Female 5:42 AM RN PROCEDURE Gender Identity Female 10/11/2022 12:37 PM CDT Sexual Orientation Straight 10/11/2022 12 :37 PM CDT COVID-19 Exposure Response Date Recorded In the last month, have you been in contact with someone who was confirmed or suspected to have Coronavirus / COVID-19? No / Unsure 03/12/2021 9:43 AM RN PROCEDURE documented as of this encounter Functional Status * Is person deaf or have serious hearing difficulty? Answer Date of Assessment Author No 02/07/2021 1:00 PM Monica Blanco RN * Is person blind or have serious difficulty seeing? Answer Date of Assessment Author No 02/07/2021 1:00 PM RN PROCEDURE Monica Solis RN * Does person have [...] Telephone Encounter - Keyla Knight RN - 03/22/2021 1:27 PM CST Images from the original note were not included. Eleni called to review bgs. Eleni states she has an error pop up on her Dexcom. I instructed Eleni to call Dexcom to see if they could troubleshoot and if not send her a new one. See Dexcom below. Per protocol, I did not make any adjustments at this time. I applauded her for her efforts. I asked for Eleni to call whenever she needs for further review. While on the phone, Eleni mentioned she hasn't had much of an appetite this week and is a little nauseas with stomach pains. I instructed her to check ketones for whenever she is nauseas. Eleni says she has checked ketones and they have been negative-trace in the past. I instructed Eleni that ifstomach pains continue then to contact her pcp. Current Doses: Lantus 28 units B 1:5 L 1:5 D 1:6 1:50>150 PROCEDURE documented in this encounter Plan of Treatment Not on file documented as of this encounter Visit Diagnoses Not on filedocumented in this encounter Care Teams Mental Health Program Manager Relationship Specialty Start Date End Date Megan Golden MD [address] [place] [phone] PCP - General Pediatrics 01/31/21 06/13/21 Unknown, Provider [address] [place] [phone] PCP - General 06/17/2106/29 Megan Golden MD [address] [place] [phone] PCP - General 06/30/21 09/12/21 Lluvia Gorman PA-C [address] [place] [phone] PCP - General Physician Patient Support Partner 09/13/21 04/26/23 Walter Pride [address] [place] [phone] PCP - General 04/27/23 documented as of this encounter
--- OUTSIDE RECORDS SUMMARY | 2024-10-18 18:25 | XMS_ITS | Encounter Summary ---
Author Organization [facility] Address [address] [facility] [place] [address] Care Team Providers Care Wood Ski Maker Name Role Phone Lluvia Gorman PA-C Primary Care Provider + Walter Pride Primary Care Provider [phone] Encounter Details Date Type Department Care Team (Late st Contact Info) Description 07/04/2022 Telephone [facility] Pediatrics - Diabetes [address] [address] Judy Trevino, [employer]-[address] [phone] Social History Tobacco Use Types Packs/Day Years Used Date Smoking Tobacco: Never Smokeless Tobacco: Never Alcohol Use Standard Drinks/Week Comments Never 0 (1 standard drink = 0.6 oz pur e alcohol) PHQ-2 Answer Date Recorded Patient Health Questionnaire-2 Score 0 12/16/2021 Comments No Sex and Gender Information Value Date Recorded Sex Assigned at Female 10/11/2022 12:37 PM CDT Legal Sex Female 5:42 AM DIRECTOR CONTENT MARKETING Gender Identity Female 10/11/2022 12:37 PM CDT [...] encounter Miscellaneous Notes * Telephone Encounter - Elke Cannon RN - 10/11/2022 1:23 PM CDT Pump packet sent to [email or web address] * Telephone Encounter - Larry Beatty - 07/04/2022 8:24 AM CDT Pump packet sent to [email or web address] documented in this encounter Plan of Treatment Not on file documented as of this encounter Visit Diagnoses Not on filedocumented in this encounter Care Teams Wood Ski Maker Relationship Specialty Start Date End Date Lluvia Gorman PA-C [address] [place] [phone] PCP - General Physician Wafer Machine Operator 09/13/21 04/26/23 Walter Pride [address] [place] [phone] PCP - General 3/14/24 documented as of this encounter
--- NOTE | 2024-10-18 18:45 | ED_ITS ---
HPI - Nausea/Vomiting/Diarrhea General Chief complaint: Nausea/Vomiting/Diarrhea Stated complaint: Abdominal Pain/Vomiting Time Seen by Provider: 10/18/24 18:45 Source: patient Mode of arrival: ambulatory Limitations: no limitations History of Present Illness HPI Narrative: 23 yo F with hx of type 1 DM presents with c/o N/V all day. Generalized ABD pain. Not able to eat or drink. Had 1 episode of diarrhea today. +chills. Afebrile. hx of miscarriage end of August. given cytotec. Reports 1 normal period since miscarriage. did not follow up with [facility]. All systems reviewed and negative except as noted above. Related Data Home Medications ?Medication ?Instructions ?Recorded ?Confirmed ?Last Taken ?Type bupropion HCl 150 mg 24 hr tablet, 150 mg PO BID 12/1012/11/23 Unknown History extended release hydroxyzine HCl 10 mg tablet See Rx Instructions .Rout e .COMPLEX 12/11/23 12/11/23 Unknown History insulin lispro 100 unit/mL subcut 10/18/24 Unknown Hi story subcutaneous pen insulin lispro 100 unit/mL 10/18/24 Unknown History subcutaneous solution insulin pump cart,auto,BT,G6/7 10/18/24 10/18/24 Unkn own History (Omnipod 5 G6-G7 Pods (Gen 5) subcutaneous cartridge) levonorgestrel-ethinyl estradiol tablet 10/18/24 Unkn own History 0.1 mg-20 mcg tablet (Aviane) Allergies Allergy/AdvReac Type Severity Reaction Status Date / Time No Known Allergies Allergy Verified 10/18/24 18:22 [facility] Past Medical History Medical History Asthma Constipation DKA, type 1 GERD (gastroesophageal reflux disease) Nausea and vomiting in adult Type I diabetes mellitus Surgical History Surgical History No history of previous surgery Social History Social History Smoking status: Never smoker Alcohol intake: never Substance use: never Living arrangements: with family Occupation/Education: student Gender identity (if verbalized by the patient): Female Comments At time of signature, agree with nursing past medical, surgical, social and family history. There is no relevant family history pertinent to the presenting complaint. Exam Narrative: GENERAL: This is a well-nourished, well-developed patient, Ill-appearing but in no acute distress HEAD: normocephalic, atraumatic. EYES: PERRL. Sclera clear/white. Vision is grossly intact. EARS: External ears normal NOSE: External nose normal NECK: Neck supple, non-tender without lymphadenopathy, masses or thyromegaly. CARDIOVASCULAR: Regular rate and rhythm without murmurs, gallops, or rubs. RESPIRATORY: Clear to auscultation. Breath sounds equal bilaterally. No wheezes, rales, or rhonchi. GASTROINTESTINAL: Abdomen soft, non-tender, nondistended. Bowel sounds are active. No hepato-splenomegaly, or palpable masses. No guarding. SKIN: warm, Dry, intact with no suspicious lesions or rash, good texture and turgor. NEURO: awake, alert, and oriented to person, place and time. There were no obvious focal neurologic abnormalities. EXTREMITIES: No joint tenderness, effusion, or edema noted. Course Course Emergency Course: pt continues to vomit after given ondansetron. Unable to give urine sample. Continues to generalized ABD pain. Will transfer to ER for further evaluation. Level of Care: Express Care Visit Vital Signs Vital signs: Vital Signs Temperature 36.8 C 10/18/24 18:25 Pulse Rate 89 10/18/24 18:25 Respiratory Rate 14 10/18/24 18:25 Blood Pressure 139/72 10/18/24 18:25 Pulse Oximetry 100 10/18/24 18:25 Oxygen Delivery Room Air 10/18/24 18:25 Temperature 36.8 C 10/18/24 18:25 Pulse Rate 89 10/18/24 18:25 Respiratory Rate 14 10/18/24 18:25 Blood Pressure 139/72 10/18/24 18:25 Pulse Oximetry 100 10/18/24 18:25 Oxygen Delivery Room Air 10/18/24 18:25 reviewed Transfer Transfered to: [facility] Transportation: Other (private vehicle) Transfer rationale: rule out DKA, BS 212. given ondansetron and continues to vomit. Accepting physician: Dr. Bertrand MDM - Nausea/Vomiting/Diarrhea Lab Data Labs: Lab Results 10/18/24 Range/Units 18:35 POC Capillary Glucose 212 H (65-105) mg/dl Discharge Plan Discharge Clinical Impression: Acute hyperglycemia Nausea & vomiting Qualifiers: Vomiting type: unspecified Qualified Code(s): R11.2 - Nausea with vomiting, unspecified Patient Disposition: Acute Care Hospital Condition: Stable Instructions: Acute Nausea and Vomiting (ED) Patient Language: Latvian Prescriptions: No Action levonorgestrel-ethinyl estrad [Aviane] 0.1-20 mg-mcg tablet insulin lispro 100 unit/mL solution insulin lispro 100 unit/mL insulin pen SUBCUT (DME) Omnipod 5 G6-G7 Pods (Gen 5) Cartridge SUBCUT hydroxyzine HCl 10 mg tablet See Rx Instructions .ROUTE .COMPLEX Rx Instructions: as preescribed bupropion HCl 150 mg tablet extended release 24 hr 150 mg PO BID Follow-up/Referrals: UNKNOWN,DOCTOR [Primary Care Provider] Time of Disposition: 19:10
[2024-10-18] MEDS: ONDANSETRON HCL ODT 4 MG TABLET SUBLINGUAL (18:53)
== END 2024-10-18 19:23 | disposition short-term general hospital (02) ==
PROVIDERS: Emergency Provider Nurse Practitioner Family
DX: E10.65 Type 1 diabetes mellitus with hyperglycemia (principal); Z79.4 Long term (current) use of insulin; R11.2 Nausea with vomiting, unspecified; J45.909 Unspecified asthma, uncomplicated; K21.9 Gastro-esophageal reflux disease without esophagitis
CPT/HCPCS: 82948; 99213; A9270; G0463